=== PATIENT | female | born 1940 | race African-American/Black ===

== ENCOUNTER 2019-03-15 14:15 | Inpatient (IN) | payer BC, OTHER ==
[~2019-03-15] VITALS: Ht 162.6 cm; Wt 74.4 kg
[2019-03-15] VITALS (18 sets, daily range): BP systolic 124–165; BP diastolic 55–81
[2019-03-15] MEDS ORDERED: VANCOMYCIN 1 G PREMIX 200 ML IV ONE (14:45)
[2019-03-15] MEDS ORDERED: SODIUM CHLORIDE 0.9% 1000ML BAG (SEPSIS BOLUS) IV ONE (14:45)
[2019-03-15] MEDS ORDERED: DEXTROSE 50% WATER 50ML SYRINGE IV ONE ×2 (14:45→15:30)
[2019-03-15] MEDS ORDERED: PIPERACILLIN/TAZ 3.375G PREMIX 50 ML IV ONE (14:45)
[2019-03-15 15:05] LABS: BASOPHILS % 1.4 % (0.0-2.0); EOSINOPHILS % 1.5 % (0.0-5.0); HEMATOCRIT. 21.9 % (36.0-48.0); HEMOGLOBIN. 7.5 g/dL (12.0-16.0); LYMPHOCYTES % 43.5 % (20.0-50.0); MEAN CORPUSCULAR HEMOGLOBIN 31.5 pg (28.0-32.0); MEAN CORPUSCULAR VOLUME 92.5 fL (81.0-99.0); MEAN PLATELET VOLUME 6.8 fl (7.4-10.4); MONOCYTES % 10.7 % (2.0-8.0); NEUTROPHILS % 42.9 % (40.0-76.0); PLATELET 293 x1000/uL (130-400); RED BLOOD CELL COUNT 2.37 mill/uL (4.2-5.4)
[2019-03-15 15:13] LABS: INR 1.1; PROTHROMBIN TIME 11.2 sec (9.6-11.0)
[2019-03-15 15:14] LABS: CHLORIDE 104 mEq/L (98-107)
[2019-03-15 15:16] LABS: CLARITY URINE CLEAR (CLEAR); COLOR URINE YELLOW (YELLOW); KETONES URINE NEGATIVE (NEGATIVE); LEUKOCYTE ESTERASE URINE 2+ (NEGATIVE); NITRITE URINE POSITIVE (NEGATIVE); OCCULT BLOOD URINE NEGATIVE (NEGATIVE); PROTEIN URINE NEGATIVE (NEGATIVE); SPECIFIC GRAVITY URINE 1.005 (1.005-1.030); UROBILINOGEN URINE 0.2 E.U./dL (0.2-1.0)
[2019-03-15 15:18] LABS: ETHANOL BLOOD < 10 mg/dL
[2019-03-15 15:28] LABS: *AMPHETAMINES SCREEN URINE NEGATIVE (NEGATIVE)
[2019-03-15 15:29] LABS: *BARBITURATES SCREEN URINE NEGATIVE (NEGATIVE); *BENZODIAZEPINES SCREEN URINE NEGATIVE (NEGATIVE); *COCAINE SCREEN URINE NEGATIVE (NEGATIVE); METHADONE URINE SCREEN NEGATIVE (NEGATIVE); OPIATES URINE SCREEN NEGATIVE (NEGATIVE); PHENCYCLIDINE URINE SCREEN NEGATIVE (NEGATIVE)
[2019-03-15 15:30] LABS: CANNABINOID URINE SCREEN NEGATIVE (NEGATIVE)
[2019-03-15] MEDS ORDERED: LEVETIRACETAM 500MG PREMIX 100 ML IV ONE (17:45)
[2019-03-15] MEDS ORDERED: NICARDIPINE 50 MG in SODIUM CHLORIDE 0.9% 230 ML IV PRN ×4 (18:15)
[2019-03-15] MEDS ORDERED: SODIUM CHLORIDE 0.9% 1,000 ML IV SCH (19:53)
[2019-03-15] MEDS ORDERED: HYDROCODONE/ACETAMINOPHEN 5/325MG TABLET PO PRN (20:00)
[2019-03-15] MEDS ORDERED: MORPHINE SULFATE 2 MG/ML CPJ (NOT FOR IM USE) IV PRN (20:00)
[2019-03-15] MEDS ORDERED: DIPHENHYDRAMINE 50MG/ML VIAL IV PRN (20:00)
[2019-03-15] MEDS ORDERED: ONDANSETRON HCL 4MG/2ML INJ IV PRN (20:00)
[2019-03-15] MEDS ORDERED: BLOOD SUGAR DIAGNOSTIC STRIP TEST SCH (20:45)
[2019-03-15] MEDS ORDERED: DEXT 5%/LACTATED RINGERS 1,000 ML IV SCH (20:45)
[2019-03-15 21:37] LABS: TOTAL IRON BINDING CAPACITY 155 ug/dL (250-450)
[2019-03-15] MEDS: CEFTRIAXONE 1 G PREMIX 50 ML IV SCH (22:24)
[2019-03-15] MEDS: INSULIN LISPRO 100 UNITS/ML SUBCUT SCH (22:42)
[2019-03-16] VITALS (98 sets, daily range): BP systolic 112–163; BP diastolic 25–79
[2019-03-16] MEDS: NICARDIPINE 100 MG in SODIUM CHLORIDE 0.9% 60 ML IV PRN ×4 (00:28→23:09)
[2019-03-16] MEDS: DEXAMETHASONE 4MG/ML 1ML VIAL IV SCH ×4 (00:36→17:15)
[2019-03-16] MEDS: BLOOD SUGAR DIAGNOSTIC STRIP TEST SCH ×4 (05:40→20:18)
[2019-03-16 06:12] LABS: BASOPHILS % 0.8 % (0.0-2.0); EOSINOPHILS % 0.6 % (0.0-5.0); HEMOGLOBIN. 7.3 g/dL (12.0-16.0); LYMPHOCYTES % 12.6 % (20.0-50.0); MEAN CORPUSCULAR HEMOGLOBIN 32.2 pg (28.0-32.0); MEAN CORPUSCULAR VOLUME 92.4 fL (81.0-99.0); MEAN PLATELET VOLUME 7.1 fl (7.4-10.4); MONOCYTES % 3.1 % (2.0-8.0); NEUTROPHILS % 82.9 % (40.0-76.0); PLATELET 317 x1000/uL (130-400); RED BLOOD CELL COUNT 2.27 mill/uL (4.2-5.4); RED CELL DISTRIBUTION WIDTH 14.9 % (11.6-14.6)
[2019-03-16] MEDS: INSULIN LISPRO 100 UNITS/ML SUBCUT SCH ×4 (06:35→20:29)
[2019-03-16] MEDS: FOLIC ACID 1MG TABLET PO SCH (09:00)
[2019-03-16] MEDS: THIAMINE HCL 100MG TABLET PO SCH (09:00)
[2019-03-16] MEDS: LEVETIRACETAM 500 MG in SODIUM CHLORIDE 0.9% 100 ML IV SCH ×2 (09:08→21:10)
[2019-03-16] MEDS: LACTATED RINGERS 1,000 ML IV SCH (11:13)
[2019-03-16] MEDS: INSULIN GLARGINE UD 100 UNITS/ML SYR SUBCUT SCH ×2 (11:14→21:10)
[2019-03-16] MEDS: CEFTRIAXONE 1 G PREMIX 50 ML IV SCH (21:10)
[2019-03-17] VITALS (92 sets, daily range): BP systolic 111–161; BP diastolic 53–113
[2019-03-17] MEDS: DEXAMETHASONE 4MG/ML 1ML VIAL IV SCH ×5 (00:41→23:46)
[2019-03-17] MEDS ORDERED: HYDR-4135 PO (02:54)
[2019-03-17] MEDS ORDERED: AMLO5TAB88 PO (02:54)
[2019-03-17] MEDS ORDERED: ALLO100T PO (02:54)
[2019-03-17] MEDS ORDERED: B12/1TAB PO (02:54)
[2019-03-17] MEDS ORDERED: METO-411 PO (02:54)
[2019-03-17] MEDS ORDERED: LISI-604 PO (02:54)
[2019-03-17] MEDS ORDERED: FURO80TA3 PO (02:54)
[2019-03-17] MEDS ORDERED: SIMV80TA90 PO (02:54)
[2019-03-17] MEDS: NICARDIPINE 100 MG in SODIUM CHLORIDE 0.9% 60 ML IV PRN ×2 (04:38→15:19)
[2019-03-17] MEDS: LACTATED RINGERS 1,000 ML IV SCH ×2 (05:45→17:10)
[2019-03-17] MEDS: BLOOD SUGAR DIAGNOSTIC STRIP TEST SCH ×4 (05:46→21:16)
[2019-03-17 05:57] LABS: BASOPHILS % 0.2 % (0.0-2.0); EOSINOPHILS % 0.1 % (0.0-5.0); HEMATOCRIT. 27.6 % (36.0-48.0); LYMPHOCYTES % 17.2 % (20.0-50.0); MEAN CORPUSCULAR HEMOGLOBIN 31.8 pg (28.0-32.0); MEAN CORPUSCULAR VOLUME 90.4 fL (81.0-99.0); MEAN PLATELET VOLUME 6.9 fl (7.4-10.4); NEUTROPHILS % 80.5 % (40.0-76.0); PLATELET 326 x1000/uL (130-400); RED BLOOD CELL COUNT 3.05 mill/uL (4.2-5.4); RED CELL DISTRIBUTION WIDTH 15.5 % (11.6-14.6)
[2019-03-17 05:58] LABS: CHLORIDE 107 mEq/L (98-107)
[2019-03-17 06:02] LABS: HEMOGLOBIN. 9.7 g/dL (12.0-16.0)
[2019-03-17] MEDS: INSULIN LISPRO 100 UNITS/ML SUBCUT SCH ×4 (06:13→21:00)
[2019-03-17] MEDS: NYSTATIN POWDER 15GM TOP SCH ×3 (09:42→17:25)
[2019-03-17] MEDS: THIAMINE HCL 100MG TABLET PO SCH (09:43)
[2019-03-17] MEDS: LEVETIRACETAM 500 MG in SODIUM CHLORIDE 0.9% 100 ML IV SCH ×2 (09:43→21:16)
[2019-03-17] MEDS: FOLIC ACID 1MG TABLET PO SCH (09:43)
[2019-03-17] MEDS: FUROSEMIDE 40MG TABLET PO SCH (10:47)
[2019-03-17] MEDS: AMLODIPINE 5MG TABLET PO SCH (10:47)
[2019-03-17] MEDS: INSULIN GLARGINE UD 100 UNITS/ML SYR SUBCUT SCH ×2 (10:51→22:23)
[2019-03-17] MEDS: HYDRALAZINE HCL 50MG TABLET PO SCH ×3 (12:13→23:46)
[2019-03-17] MEDS: HYDRALAZINE 20MG/ML VIAL IV PRN (13:11)
[2019-03-17] MEDS: CEFTRIAXONE 1 G PREMIX 50 ML IV SCH (20:49)
[2019-03-17] MEDS: LISINOPRIL 20MG TABLET PO SCH (20:50)
[2019-03-17] MEDS: METOPROLOL TARTRATE 100MG TABLET PO SCH (20:50)
[2019-03-18] VITALS (89 sets, daily range): BP systolic 118–167; BP diastolic 41–103
[2019-03-18] MEDS: NICARDIPINE 100 MG in SODIUM CHLORIDE 0.9% 60 ML IV PRN ×2 (00:04→23:18)
[2019-03-18 05:40] LABS: BASOPHILS % 0.3 % (0.0-2.0); LYMPHOCYTES % 10.8 % (20.0-50.0); MEAN CORPUSCULAR HEMOGLOBIN 31.6 pg (28.0-32.0); MONOCYTES % 3.6 % (2.0-8.0); NEUTROPHILS % 85.3 % (40.0-76.0); PLATELET 301 x1000/uL (130-400); RED BLOOD CELL COUNT 2.85 mill/uL (4.2-5.4); RED CELL DISTRIBUTION WIDTH 15.4 % (11.6-14.6)
[2019-03-18 05:47] LABS: CHLORIDE 108 mEq/L (98-107)
[2019-03-18] MEDS: DEXAMETHASONE 4MG/ML 1ML VIAL IV SCH ×3 (05:59→17:03)
[2019-03-18] MEDS: BLOOD SUGAR DIAGNOSTIC STRIP TEST SCH ×4 (05:59→21:22)
[2019-03-18] MEDS: HYDRALAZINE HCL 50MG TABLET PO SCH ×2 (05:59→11:12)
[2019-03-18] MEDS: INSULIN LISPRO 100 UNITS/ML SUBCUT SCH ×4 (06:22→21:32)
[2019-03-18] MEDS: LISINOPRIL 20MG TABLET PO SCH ×2 (08:07→21:30)
[2019-03-18] MEDS: LEVETIRACETAM 500 MG in SODIUM CHLORIDE 0.9% 100 ML IV SCH ×2 (08:07→21:29)
[2019-03-18] MEDS: FOLIC ACID 1MG TABLET PO SCH (08:07)
[2019-03-18] MEDS: AMLODIPINE 5MG TABLET PO SCH ×3 (08:07→21:30)
[2019-03-18] MEDS: FUROSEMIDE 40MG TABLET PO SCH (08:07)
[2019-03-18] MEDS: THIAMINE HCL 100MG TABLET PO SCH (08:07)
[2019-03-18] MEDS: NYSTATIN POWDER 15GM TOP SCH ×3 (08:08→16:05)
[2019-03-18] MEDS: METOPROLOL TARTRATE 100MG TABLET PO SCH ×2 (08:08→21:30)
[2019-03-18] MEDS: INSULIN GLARGINE UD 100 UNITS/ML SYR SUBCUT SCH ×2 (09:52→21:33)
[2019-03-18] MEDS: LACTATED RINGERS 1,000 ML IV SCH (09:58)
[2019-03-18] MEDS: CLONIDINE 0.1MG TABLET PO PRN (12:43)
[2019-03-18] MEDS: HYDRALAZINE HCL 100MG TABLET PO SCH (17:03)
[2019-03-18] MEDS: CEFTRIAXONE 1 G PREMIX 50 ML IV SCH (21:29)
[2019-03-19] VITALS (95 sets, daily range): BP systolic 117–171; BP diastolic 55–111
[2019-03-19] MEDS: LACTATED RINGERS 1,000 ML IV SCH ×2 (02:28→20:17)
[2019-03-19] MEDS: DEXAMETHASONE 4MG/ML 1ML VIAL IV SCH ×4 (02:28→17:00)
[2019-03-19] MEDS: BLOOD SUGAR DIAGNOSTIC STRIP TEST SCH ×4 (05:47→20:17)
[2019-03-19] MEDS: INSULIN LISPRO 100 UNITS/ML SUBCUT SCH ×4 (06:05→20:23)
[2019-03-19 06:14] LABS: BASOPHILS % 0.1 % (0.0-2.0); LYMPHOCYTES % 9.7 % (20.0-50.0); MEAN CORPUSCULAR HEMOGLOBIN 31.6 pg (28.0-32.0); MEAN CORPUSCULAR VOLUME 91.5 fL (81.0-99.0); MEAN PLATELET VOLUME 7.2 fl (7.4-10.4); MONOCYTES % 4.9 % (2.0-8.0); NEUTROPHILS % 85.3 % (40.0-76.0); PLATELET 329 x1000/uL (130-400); RED BLOOD CELL COUNT 3.17 mill/uL (4.2-5.4); RED CELL DISTRIBUTION WIDTH 15.1 % (11.6-14.6)
[2019-03-19 06:26] LABS: CHLORIDE 106 mEq/L (98-107)
[2019-03-19] MEDS: LORAZEPAM 2MG/ML CPJ IV PRN ×2 (07:24→13:06)
[2019-03-19] MEDS: NICARDIPINE 100 MG in SODIUM CHLORIDE 0.9% 60 ML IV PRN (08:22)
[2019-03-19] MEDS: AMLODIPINE 5MG TABLET PO SCH ×2 (09:41→20:16)
[2019-03-19] MEDS: THIAMINE HCL 100MG TABLET PO SCH (09:41)
[2019-03-19] MEDS: LISINOPRIL 20MG TABLET PO SCH ×2 (09:41→20:16)
[2019-03-19] MEDS: NYSTATIN POWDER 15GM TOP SCH ×3 (09:41→16:59)
[2019-03-19] MEDS: LEVETIRACETAM 500 MG in SODIUM CHLORIDE 0.9% 100 ML IV SCH ×2 (09:42→20:15)
[2019-03-19] MEDS: FUROSEMIDE 40MG TABLET PO SCH (09:42)
[2019-03-19] MEDS: METOPROLOL TARTRATE 100MG TABLET PO SCH ×2 (09:42→20:16)
[2019-03-19] MEDS: HYDRALAZINE HCL 100MG TABLET PO SCH ×3 (09:42→16:59)
[2019-03-19] MEDS: FOLIC ACID 1MG TABLET PO SCH (09:42)
[2019-03-19] MEDS: INSULIN GLARGINE UD 100 UNITS/ML SYR SUBCUT SCH ×2 (11:37→22:14)
[2019-03-19] MEDS: CLONIDINE 0.1MG TABLET PO SCH ×2 (13:13→22:15)
[2019-03-19] MEDS: CEFTRIAXONE 1 G PREMIX 50 ML IV SCH (20:16)
[2019-03-19] MEDS: IPRATROPIUM/ALBUTEROL 0.5-3(2.5)MG/3ML NEB HHN SCH (21:14)
[2019-03-20] VITALS (51 sets, daily range): BP systolic 121–192; BP diastolic 53–94
[2019-03-20] MEDS: DEXAMETHASONE 4MG/ML 1ML VIAL IV SCH ×4 (00:30→17:11)
[2019-03-20] MEDS: IPRATROPIUM/ALBUTEROL 0.5-3(2.5)MG/3ML NEB HHN SCH ×4 (01:27→18:00)
[2019-03-20] MEDS: NICARDIPINE 100 MG in SODIUM CHLORIDE 0.9% 60 ML IV PRN (02:01)
[2019-03-20 06:15] LABS: CHLORIDE 106 mEq/L (98-107)
[2019-03-20] MEDS: CLONIDINE 0.1MG TABLET PO SCH ×3 (06:24→21:28)
[2019-03-20] MEDS: BLOOD SUGAR DIAGNOSTIC STRIP TEST SCH ×4 (06:24→21:30)
[2019-03-20] MEDS: INSULIN LISPRO 100 UNITS/ML SUBCUT SCH ×4 (06:26→22:29)
[2019-03-20 06:28] LABS: HEMATOCRIT. 33.2 % (36.0-48.0); HEMOGLOBIN. 11.1 g/dL (12.0-16.0); LYMPHOCYTES % 10.5 % (20.0-50.0); MEAN CORPUSCULAR HEMOGLOBIN 30.8 pg (28.0-32.0); MEAN CORPUSCULAR VOLUME 92.3 fL (81.0-99.0); MEAN PLATELET VOLUME 7.6 fl (7.4-10.4); MONOCYTES % 4.6 % (2.0-8.0); NEUTROPHILS % 84.9 % (40.0-76.0); PLATELET 325 x1000/uL (130-400); RED CELL DISTRIBUTION WIDTH 15.1 % (11.6-14.6)
[2019-03-20] MEDS: FUROSEMIDE 40MG TABLET PO SCH (08:00)
[2019-03-20] MEDS: AMLODIPINE 5MG TABLET PO SCH ×2 (08:00→20:30)
[2019-03-20] MEDS: LEVETIRACETAM 500 MG in SODIUM CHLORIDE 0.9% 100 ML IV SCH ×2 (08:00→22:22)
[2019-03-20] MEDS: FOLIC ACID 1MG TABLET PO SCH (08:00)
[2019-03-20] MEDS: METOPROLOL TARTRATE 100MG TABLET PO SCH ×2 (08:00→20:30)
[2019-03-20] MEDS: HYDRALAZINE HCL 100MG TABLET PO SCH ×3 (08:00→17:11)
[2019-03-20] MEDS: THIAMINE HCL 100MG TABLET PO SCH (08:01)
[2019-03-20] MEDS: LISINOPRIL 20MG TABLET PO SCH ×2 (08:01→20:30)
[2019-03-20] MEDS: NYSTATIN POWDER 15GM TOP SCH ×3 (08:10→17:12)
[2019-03-20] MEDS: INSULIN GLARGINE UD 100 UNITS/ML SYR SUBCUT SCH ×2 (10:24→22:30)
[2019-03-20] MEDS: LACTATED RINGERS 1,000 ML IV SCH (11:38)
[2019-03-20] MEDS: CLONIDINE 0.1MG TABLET PO PRN (11:44)
[2019-03-20] MEDS: HYDRALAZINE 20MG/ML VIAL IV PRN (18:45)
[2019-03-21] VITALS (16 sets, daily range): BP systolic 146–184; BP diastolic 57–82
[2019-03-21] MEDS: DEXAMETHASONE 4MG/ML 1ML VIAL IV SCH ×4 (00:22→17:13)
[2019-03-21] MEDS: CEFTRIAXONE 1 G PREMIX 50 ML IV SCH ×2 (00:22→20:16)
[2019-03-21] MEDS: CLONIDINE 0.1MG TABLET PO PRN ×3 (02:03→13:50)
[2019-03-21] MEDS: IPRATROPIUM/ALBUTEROL 0.5-3(2.5)MG/3ML NEB HHN SCH ×3 (02:59→20:04)
[2019-03-21] MEDS: LACTATED RINGERS 1,000 ML IV SCH (05:06)
[2019-03-21] MEDS: CLONIDINE 0.1MG TABLET PO SCH ×3 (05:07→23:46)
[2019-03-21 06:56] LABS: BASOPHILS % 0.1 % (0.0-2.0); HEMATOCRIT. 27.4 % (36.0-48.0); HEMOGLOBIN. 9.3 g/dL (12.0-16.0); LYMPHOCYTES % 12.7 % (20.0-50.0); MEAN CORPUSCULAR HEMOGLOBIN 31.2 pg (28.0-32.0); MEAN CORPUSCULAR VOLUME 91.5 fL (81.0-99.0); MEAN PLATELET VOLUME 7.5 fl (7.4-10.4); MONOCYTES % 7.8 % (2.0-8.0); NEUTROPHILS % 79.4 % (40.0-76.0); PLATELET 264 x1000/uL (130-400); RED BLOOD CELL COUNT 2.99 mill/uL (4.2-5.4); RED CELL DISTRIBUTION WIDTH 15.1 % (11.6-14.6)
[2019-03-21 07:04] LABS: CHLORIDE 109 mEq/L (98-107)
[2019-03-21] MEDS: BLOOD SUGAR DIAGNOSTIC STRIP TEST SCH ×4 (08:09→21:00)
[2019-03-21] MEDS: INSULIN LISPRO 100 UNITS/ML SUBCUT SCH ×4 (08:21→22:42)
[2019-03-21] MEDS: METOPROLOL TARTRATE 100MG TABLET PO SCH ×2 (08:23→20:17)
[2019-03-21] MEDS: THIAMINE HCL 100MG TABLET PO SCH (08:23)
[2019-03-21] MEDS: LISINOPRIL 20MG TABLET PO SCH ×2 (08:24→20:18)
[2019-03-21] MEDS: FUROSEMIDE 40MG TABLET PO SCH (08:24)
[2019-03-21] MEDS: HYDRALAZINE HCL 100MG TABLET PO SCH ×3 (08:24→16:15)
[2019-03-21] MEDS: FOLIC ACID 1MG TABLET PO SCH (08:24)
[2019-03-21] MEDS: LEVETIRACETAM 500 MG in SODIUM CHLORIDE 0.9% 100 ML IV SCH ×2 (08:24→22:27)
[2019-03-21] MEDS: AMLODIPINE 5MG TABLET PO SCH ×2 (08:24→20:17)
[2019-03-21] MEDS: NYSTATIN POWDER 15GM TOP SCH ×3 (08:25→16:15)
[2019-03-21] MEDS: INSULIN GLARGINE UD 100 UNITS/ML SYR SUBCUT SCH ×2 (09:50→22:42)
[2019-03-21] MEDS: HYDRALAZINE 20MG/ML VIAL IV PRN ×2 (10:08→17:13)
[2019-03-21] MEDS: IPRATROPIUM/ALBUTEROL 0.5-3(2.5)MG/3ML NEB HHN PRN ×2 (12:06→16:09)
[2019-03-21] MEDS: ACETYLCYSTEINE 100MG/ML 10% VIAL 4ML INH SCH (16:09)
[2019-03-21] MEDS: MINOXIDIL 2.5MG TABLET PO SCH (18:29)
[2019-03-21] MEDS: FLUOXETINE HCL 20MG CAPSULE PO SCH (20:16)
[2019-03-22] VITALS (12 sets, daily range): BP systolic 102–174; BP diastolic 37–80
[2019-03-22] MEDS: DEXAMETHASONE 4MG/ML 1ML VIAL IV SCH ×4 (00:54→17:28)
[2019-03-22] MEDS: IPRATROPIUM/ALBUTEROL 0.5-3(2.5)MG/3ML NEB HHN SCH ×4 (01:57→22:11)
[2019-03-22] MEDS: CLONIDINE 0.1MG TABLET PO SCH ×3 (05:09→22:47)
[2019-03-22 07:50] LABS: CHLORIDE 108 mEq/L (98-107)
[2019-03-22 07:55] LABS: BASOPHILS % 0.1 % (0.0-2.0); HEMATOCRIT. 26.7 % (36.0-48.0); HEMOGLOBIN. 9.1 g/dL (12.0-16.0); LYMPHOCYTES % 13.5 % (20.0-50.0); MEAN CORPUSCULAR HEMOGLOBIN 30.9 pg (28.0-32.0); MEAN CORPUSCULAR VOLUME 90.8 fL (81.0-99.0); MEAN PLATELET VOLUME 7.5 fl (7.4-10.4); MONOCYTES % 4.9 % (2.0-8.0); NEUTROPHILS % 81.5 % (40.0-76.0); PLATELET 232 x1000/uL (130-400); RED BLOOD CELL COUNT 2.94 mill/uL (4.2-5.4); RED CELL DISTRIBUTION WIDTH 14.9 % (11.6-14.6)
[2019-03-22] MEDS: INSULIN LISPRO 100 UNITS/ML SUBCUT SCH ×4 (08:00→21:52)
[2019-03-22] MEDS: THIAMINE HCL 100MG TABLET PO SCH (08:10)
[2019-03-22] MEDS: LISINOPRIL 20MG TABLET PO SCH ×2 (08:10→21:27)
[2019-03-22] MEDS: METOPROLOL TARTRATE 100MG TABLET PO SCH ×2 (08:10→21:26)
[2019-03-22] MEDS: HYDRALAZINE HCL 100MG TABLET PO SCH ×3 (08:10→17:00)
[2019-03-22] MEDS: FOLIC ACID 1MG TABLET PO SCH (08:11)
[2019-03-22] MEDS: MINOXIDIL 2.5MG TABLET PO SCH ×2 (08:11→17:00)
[2019-03-22] MEDS: AMLODIPINE 5MG TABLET PO SCH ×2 (08:11→21:27)
[2019-03-22] MEDS: FUROSEMIDE 40MG TABLET PO SCH (08:11)
[2019-03-22] MEDS: FLUOXETINE HCL 20MG CAPSULE PO SCH (08:11)
[2019-03-22] MEDS: BLOOD SUGAR DIAGNOSTIC STRIP TEST SCH ×4 (08:11→21:27)
[2019-03-22] MEDS: LEVETIRACETAM 500 MG in SODIUM CHLORIDE 0.9% 100 ML IV SCH ×2 (08:15→22:47)
[2019-03-22] MEDS: ACETYLCYSTEINE 100MG/ML 10% VIAL 4ML INH SCH ×2 (08:29→14:05)
[2019-03-22] MEDS: NYSTATIN POWDER 15GM TOP SCH ×3 (10:31→17:30)
[2019-03-22] MEDS: INSULIN GLARGINE UD 100 UNITS/ML SYR SUBCUT SCH ×2 (10:32→22:49)
[2019-03-22 19:55] LABS: TOTAL IRON BINDING CAPACITY 158 ug/dL (250-450)
[2019-03-22] MEDS: CEFTRIAXONE 1 G PREMIX 50 ML IV SCH (21:25)
[2019-03-23] VITALS (14 sets, daily range): BP systolic 98–185; BP diastolic 44–68
[2019-03-23] MEDS: DEXAMETHASONE 4MG/ML 1ML VIAL IV SCH ×5 (00:11→23:13)
[2019-03-23] MEDS: IPRATROPIUM/ALBUTEROL 0.5-3(2.5)MG/3ML NEB HHN SCH ×4 (03:02→22:00)
[2019-03-23] MEDS: HYDRALAZINE 20MG/ML VIAL IV PRN (05:06)
[2019-03-23] MEDS: CLONIDINE 0.1MG TABLET PO SCH ×3 (05:26→22:00)
[2019-03-23] MEDS: BLOOD SUGAR DIAGNOSTIC STRIP TEST SCH ×4 (07:30→21:11)
[2019-03-23] MEDS: ACETYLCYSTEINE 100MG/ML 10% VIAL 4ML INH SCH ×2 (08:00→09:03)
[2019-03-23] MEDS: INSULIN LISPRO 100 UNITS/ML SUBCUT SCH ×4 (08:00→21:24)
[2019-03-23] MEDS: LEVETIRACETAM 500 MG in SODIUM CHLORIDE 0.9% 100 ML IV SCH ×2 (09:32→20:48)
[2019-03-23] MEDS: HYDRALAZINE HCL 100MG TABLET PO SCH ×3 (09:33→17:07)
[2019-03-23] MEDS: FOLIC ACID 1MG TABLET PO SCH (09:33)
[2019-03-23] MEDS: FLUOXETINE HCL 20MG CAPSULE PO SCH (09:33)
[2019-03-23] MEDS: FUROSEMIDE 40MG TABLET PO SCH (09:33)
[2019-03-23] MEDS: THIAMINE HCL 100MG TABLET PO SCH (09:33)
[2019-03-23] MEDS: MINOXIDIL 2.5MG TABLET PO SCH ×2 (09:34→17:08)
[2019-03-23] MEDS: METOPROLOL TARTRATE 100MG TABLET PO SCH ×2 (09:34→21:11)
[2019-03-23] MEDS: LISINOPRIL 20MG TABLET PO SCH ×2 (09:35→21:11)
[2019-03-23] MEDS: AMLODIPINE 5MG TABLET PO SCH ×2 (09:35→21:10)
[2019-03-23] MEDS: NYSTATIN POWDER 15GM TOP SCH ×3 (09:36→17:08)
[2019-03-23] MEDS: INSULIN GLARGINE UD 100 UNITS/ML SYR SUBCUT SCH ×2 (09:39→22:35)
[2019-03-23] MEDS ORDERED: ACETAMINOPHEN 325MG TABLET PO PRN (16:15)
[2019-03-24] VITALS (11 sets, daily range): BP systolic 99–146; BP diastolic 35–59
[2019-03-24] MEDS: IPRATROPIUM/ALBUTEROL 0.5-3(2.5)MG/3ML NEB HHN SCH ×4 (02:43→20:06)
[2019-03-24] MEDS: DEXAMETHASONE 4MG/ML 1ML VIAL IV SCH ×3 (05:21→17:33)
[2019-03-24] MEDS: CLONIDINE 0.1MG TABLET PO SCH ×3 (05:21→22:35)
[2019-03-24] MEDS: BLOOD SUGAR DIAGNOSTIC STRIP TEST SCH ×4 (07:30→21:01)
[2019-03-24] MEDS: INSULIN LISPRO 100 UNITS/ML SUBCUT SCH ×4 (08:00→21:13)
[2019-03-24 08:04] LABS: BASOPHILS % 0.2 % (0.0-2.0); HEMATOCRIT. 25.7 % (36.0-48.0); HEMOGLOBIN. 8.7 g/dL (12.0-16.0); LYMPHOCYTES % 23.4 % (20.0-50.0); MEAN CORPUSCULAR HEMOGLOBIN 30.7 pg (28.0-32.0); MEAN CORPUSCULAR VOLUME 90.9 fL (81.0-99.0); MEAN PLATELET VOLUME 7.8 fl (7.4-10.4); MONOCYTES % 7.1 % (2.0-8.0); NEUTROPHILS % 69.3 % (40.0-76.0); PLATELET 194 x1000/uL (130-400); RED BLOOD CELL COUNT 2.82 mill/uL (4.2-5.4)
[2019-03-24 08:43] LABS: PHOSPHORUS 2.8 mg/dL (2.5-4.9)
[2019-03-24] MEDS: ACETYLCYSTEINE 100MG/ML 10% VIAL 4ML INH SCH (08:55)
[2019-03-24] MEDS: METOPROLOL TARTRATE 100MG TABLET PO SCH ×2 (09:00→21:00)
[2019-03-24] MEDS: AMLODIPINE 5MG TABLET PO SCH ×2 (09:00→21:00)
[2019-03-24] MEDS: HYDRALAZINE HCL 100MG TABLET PO SCH ×3 (09:00→17:00)
[2019-03-24] MEDS: LISINOPRIL 20MG TABLET PO SCH ×2 (09:00→21:01)
[2019-03-24] MEDS: MINOXIDIL 2.5MG TABLET PO SCH ×2 (09:00→17:00)
[2019-03-24] MEDS: LEVETIRACETAM 500 MG in SODIUM CHLORIDE 0.9% 100 ML IV SCH ×2 (09:25→21:46)
[2019-03-24] MEDS: FOLIC ACID 1MG TABLET PO SCH (09:26)
[2019-03-24] MEDS: FLUOXETINE HCL 20MG CAPSULE PO SCH (09:26)
[2019-03-24] MEDS: FUROSEMIDE 40MG TABLET PO SCH (09:26)
[2019-03-24] MEDS: THIAMINE HCL 100MG TABLET PO SCH (09:26)
[2019-03-24] MEDS: NYSTATIN POWDER 15GM TOP SCH ×3 (09:27→17:34)
[2019-03-24] MEDS: INSULIN GLARGINE UD 100 UNITS/ML SYR SUBCUT SCH ×2 (11:04→21:50)
[2019-03-25] VITALS (12 sets, daily range): BP systolic 95–160; BP diastolic 51–69
[2019-03-25] MEDS: DEXAMETHASONE 4MG/ML 1ML VIAL IV SCH ×4 (00:41→18:28)
[2019-03-25] MEDS: IPRATROPIUM/ALBUTEROL 0.5-3(2.5)MG/3ML NEB HHN SCH ×4 (02:06→21:04)
[2019-03-25] MEDS: CLONIDINE 0.1MG TABLET PO SCH ×3 (05:12→21:56)
[2019-03-25] MEDS: BLOOD SUGAR DIAGNOSTIC STRIP TEST SCH ×4 (07:38→21:43)
[2019-03-25] MEDS: INSULIN LISPRO 100 UNITS/ML SUBCUT SCH ×4 (08:05→21:46)
[2019-03-25 08:46] LABS: TOTAL IRON BINDING CAPACITY 172 ug/dL (250-450)
[2019-03-25] MEDS: METOPROLOL TARTRATE 100MG TABLET PO SCH ×2 (09:00→19:34)
[2019-03-25] MEDS: LEVETIRACETAM 500 MG in SODIUM CHLORIDE 0.9% 100 ML IV SCH ×2 (09:06→21:43)
[2019-03-25] MEDS: FLUOXETINE HCL 20MG CAPSULE PO SCH (09:06)
[2019-03-25] MEDS: THIAMINE HCL 100MG TABLET PO SCH (09:06)
[2019-03-25] MEDS: NYSTATIN POWDER 15GM TOP SCH ×3 (09:07→18:27)
[2019-03-25] MEDS: AMLODIPINE 5MG TABLET PO SCH ×2 (09:51→19:34)
[2019-03-25] MEDS: MINOXIDIL 2.5MG TABLET PO SCH ×2 (09:52→17:00)
[2019-03-25] MEDS: HYDRALAZINE HCL 100MG TABLET PO SCH ×3 (09:53→17:00)
[2019-03-25] MEDS: LISINOPRIL 20MG TABLET PO SCH ×2 (09:58→19:34)
[2019-03-25] MEDS: INSULIN GLARGINE UD 100 UNITS/ML SYR SUBCUT SCH ×2 (12:00→21:52)
[2019-03-25] MEDS: ACETYLCYSTEINE 100MG/ML 10% VIAL 4ML INH SCH (21:03)
[2019-03-26] VITALS (11 sets, daily range): BP systolic 91–158; BP diastolic 35–72
[2019-03-26] MEDS: DEXAMETHASONE 4MG/ML 1ML VIAL IV SCH ×4 (01:13→17:38)
[2019-03-26] MEDS: IPRATROPIUM/ALBUTEROL 0.5-3(2.5)MG/3ML NEB HHN SCH ×4 (01:31→21:28)
[2019-03-26] MEDS: CLONIDINE 0.1MG TABLET PO SCH ×3 (06:00→22:00)
[2019-03-26] MEDS: BLOOD SUGAR DIAGNOSTIC STRIP TEST SCH ×4 (07:30→21:03)
[2019-03-26] MEDS: ACETYLCYSTEINE 100MG/ML 10% VIAL 4ML INH SCH ×3 (08:12→17:00)
[2019-03-26] MEDS: METOPROLOL TARTRATE 100MG TABLET PO SCH ×2 (09:00→21:00)
[2019-03-26] MEDS: NYSTATIN POWDER 15GM TOP SCH ×3 (09:00→17:39)
[2019-03-26] MEDS: THIAMINE HCL 100MG TABLET PO SCH (09:10)
[2019-03-26] MEDS: FLUOXETINE HCL 20MG CAPSULE PO SCH (09:11)
[2019-03-26] MEDS: HYDRALAZINE HCL 100MG TABLET PO SCH ×3 (09:11→17:38)
[2019-03-26] MEDS: LISINOPRIL 20MG TABLET PO SCH ×2 (09:12→21:00)
[2019-03-26] MEDS: MINOXIDIL 2.5MG TABLET PO SCH ×2 (09:13→17:39)
[2019-03-26] MEDS: AMLODIPINE 5MG TABLET PO SCH ×2 (09:13→21:00)
[2019-03-26] MEDS: INSULIN LISPRO 100 UNITS/ML SUBCUT SCH ×4 (09:16→21:17)
[2019-03-26] MEDS: LEVETIRACETAM 500 MG in SODIUM CHLORIDE 0.9% 100 ML IV SCH ×2 (09:24→22:20)
[2019-03-26] MEDS: INSULIN GLARGINE UD 100 UNITS/ML SYR SUBCUT SCH ×2 (11:10→22:20)
[2019-03-26 17:08] LABS: 25-HYDROXY VITAMIN D3 35 ng/mL (.)
[2019-03-26 18:18] LABS: BASOPHILS % 0.3 % (0.0-2.0); HEMATOCRIT. 30.1 % (36.0-48.0); HEMOGLOBIN. 10.2 g/dL (12.0-16.0); LYMPHOCYTES % 11.9 % (20.0-50.0); MEAN CORPUSCULAR HEMOGLOBIN 30.7 pg (28.0-32.0); MEAN CORPUSCULAR VOLUME 90.4 fL (81.0-99.0); MEAN PLATELET VOLUME 8.4 fl (7.4-10.4); MONOCYTES % 7.8 % (2.0-8.0); PLATELET 243 x1000/uL (130-400); RED BLOOD CELL COUNT 3.33 mill/uL (4.2-5.4); RED CELL DISTRIBUTION WIDTH 14.7 % (11.6-14.6)
[2019-03-27] VITALS (10 sets, daily range): BP systolic 91–145; BP diastolic 31–55
[2019-03-27] MEDS: DEXAMETHASONE 4MG/ML 1ML VIAL IV SCH ×5 (00:50→23:35)
[2019-03-27] MEDS: IPRATROPIUM/ALBUTEROL 0.5-3(2.5)MG/3ML NEB HHN SCH (02:38)
[2019-03-27] MEDS: CLONIDINE 0.1MG TABLET PO SCH ×3 (05:32→21:10)
[2019-03-27] MEDS: BLOOD SUGAR DIAGNOSTIC STRIP TEST SCH ×4 (07:30→21:03)
[2019-03-27] MEDS: THIAMINE HCL 100MG TABLET PO SCH (08:42)
[2019-03-27] MEDS: FLUOXETINE HCL 20MG CAPSULE PO SCH (08:42)
[2019-03-27] MEDS: NYSTATIN POWDER 15GM TOP SCH ×3 (08:46→17:26)
[2019-03-27] MEDS: INSULIN LISPRO 100 UNITS/ML SUBCUT SCH ×4 (08:57→21:09)
[2019-03-27] MEDS: HYDRALAZINE HCL 100MG TABLET PO SCH ×3 (09:00→17:25)
[2019-03-27] MEDS: MINOXIDIL 2.5MG TABLET PO SCH ×2 (09:00→17:00)
[2019-03-27] MEDS: AMLODIPINE 5MG TABLET PO SCH ×2 (09:00→21:00)
[2019-03-27] MEDS: METOPROLOL TARTRATE 100MG TABLET PO SCH ×2 (09:00→21:00)
[2019-03-27] MEDS: LEVETIRACETAM 500 MG in SODIUM CHLORIDE 0.9% 100 ML IV SCH (09:00)
[2019-03-27] MEDS: LISINOPRIL 20MG TABLET PO SCH ×2 (09:00→21:00)
[2019-03-27] MEDS: INSULIN GLARGINE UD 100 UNITS/ML SYR SUBCUT SCH ×2 (11:03→23:37)
[2019-03-27] MEDS: LEVETIRACETAM 500MG PREMIX 100 ML IV SCH (21:09)
[2019-03-28] VITALS (9 sets, daily range): BP systolic 94–166; BP diastolic 37–75
[2019-03-28] MEDS: DEXAMETHASONE 4MG/ML 1ML VIAL IV SCH ×3 (05:34→17:25)
[2019-03-28] MEDS: CLONIDINE 0.1MG TABLET PO SCH ×3 (05:36→22:00)
[2019-03-28 07:06] LABS: BASOPHILS % 0.1 % (0.0-2.0); HEMATOCRIT. 27.5 % (36.0-48.0); HEMOGLOBIN. 9.4 g/dL (12.0-16.0); LYMPHOCYTES % 12.3 % (20.0-50.0); MEAN CORPUSCULAR VOLUME 90.8 fL (81.0-99.0); MEAN PLATELET VOLUME 8.1 fl (7.4-10.4); NEUTROPHILS % 80.6 % (40.0-76.0); PLATELET 224 x1000/uL (130-400); RED BLOOD CELL COUNT 3.03 mill/uL (4.2-5.4)
[2019-03-28] MEDS: BLOOD SUGAR DIAGNOSTIC STRIP TEST SCH ×4 (07:45→21:33)
[2019-03-28] MEDS: INSULIN LISPRO 100 UNITS/ML SUBCUT SCH ×4 (08:09→21:00)
[2019-03-28] MEDS: AMLODIPINE 5MG TABLET PO SCH ×2 (09:00→21:00)
[2019-03-28] MEDS: HYDRALAZINE HCL 100MG TABLET PO SCH ×3 (09:00→17:00)
[2019-03-28] MEDS: MINOXIDIL 2.5MG TABLET PO SCH ×2 (09:00→17:00)
[2019-03-28] MEDS: LISINOPRIL 20MG TABLET PO SCH ×2 (09:00→21:00)
[2019-03-28] MEDS: METOPROLOL TARTRATE 100MG TABLET PO SCH ×2 (09:00→21:00)
[2019-03-28] MEDS: FLUOXETINE HCL 20MG CAPSULE PO SCH (09:15)
[2019-03-28] MEDS: THIAMINE HCL 100MG TABLET PO SCH (09:15)
[2019-03-28] MEDS: LEVETIRACETAM 500MG PREMIX 100 ML IV SCH ×2 (09:17→22:45)
[2019-03-28] MEDS: NYSTATIN POWDER 15GM TOP SCH ×3 (10:38→17:25)
[2019-03-28] MEDS: INSULIN GLARGINE UD 100 UNITS/ML SYR SUBCUT SCH ×2 (10:39→22:46)
[2019-03-28] MEDS: SODIUM CHLORIDE 0.9% 1,000 ML IV SCH ×2 (11:53→22:47)
[2019-03-29] VITALS (7 sets, daily range): BP systolic 112–153; BP diastolic 41–88
[2019-03-29] MEDS: CLONIDINE 0.1MG TABLET PO SCH ×3 (07:01→22:00)
[2019-03-29 07:16] LABS: BASOPHILS % 0.1 % (0.0-2.0); HEMATOCRIT. 26.2 % (36.0-48.0); HEMOGLOBIN. 9.2 g/dL (12.0-16.0); LYMPHOCYTES % 24.2 % (20.0-50.0); MEAN CORPUSCULAR HEMOGLOBIN 31.3 pg (28.0-32.0); MEAN CORPUSCULAR VOLUME 89.8 fL (81.0-99.0); MEAN PLATELET VOLUME 7.8 fl (7.4-10.4); MONOCYTES % 10.4 % (2.0-8.0); NEUTROPHILS % 65.3 % (40.0-76.0); PLATELET 210 x1000/uL (130-400); RED BLOOD CELL COUNT 2.92 mill/uL (4.2-5.4); RED CELL DISTRIBUTION WIDTH 15.1 % (11.6-14.6)
[2019-03-29] MEDS: INSULIN LISPRO 100 UNITS/ML SUBCUT SCH ×4 (08:00→21:00)
[2019-03-29] MEDS: DEXTROSE 50% WATER 50ML SYRINGE IV PRN ×2 (08:04→12:20)
[2019-03-29] MEDS: BLOOD SUGAR DIAGNOSTIC STRIP TEST SCH ×4 (08:08→21:36)
[2019-03-29] MEDS: LISINOPRIL 20MG TABLET PO SCH ×2 (09:00→21:35)
[2019-03-29] MEDS: HYDRALAZINE HCL 100MG TABLET PO SCH ×3 (09:00→17:48)
[2019-03-29] MEDS: AMLODIPINE 5MG TABLET PO SCH ×2 (09:00→21:00)
[2019-03-29] MEDS: METOPROLOL TARTRATE 100MG TABLET PO SCH ×2 (09:00→21:35)
[2019-03-29] MEDS: MINOXIDIL 2.5MG TABLET PO SCH ×2 (09:00→17:48)
[2019-03-29] MEDS: INSULIN GLARGINE UD 100 UNITS/ML SYR SUBCUT SCH ×2 (10:00→21:35)
[2019-03-29] MEDS: FLUOXETINE HCL 20MG CAPSULE PO SCH (10:05)
[2019-03-29] MEDS: THIAMINE HCL 100MG TABLET PO SCH (10:05)
[2019-03-29] MEDS: LEVETIRACETAM 500MG PREMIX 100 ML IV SCH ×2 (10:05→21:40)
[2019-03-29] MEDS: DEXAMETHASONE 4MG/ML 1ML VIAL IV SCH ×2 (10:55→17:48)
[2019-03-29] MEDS: NYSTATIN POWDER 15GM TOP SCH ×3 (10:55→17:48)
[2019-03-29] MEDS: SODIUM CHLORIDE 0.9% 1,000 ML IV SCH (21:40)
[2019-03-30] VITALS: BP 115/45
[2019-03-30 04:00] VITALS: BP 136/54
[2019-03-30] MEDS: CLONIDINE 0.1MG TABLET PO SCH ×3 (04:35→22:00)
[2019-03-30] MEDS: SODIUM CHLORIDE 0.9% 1,000 ML IV SCH ×2 (04:36→18:01)
[2019-03-30] MEDS: BLOOD SUGAR DIAGNOSTIC STRIP TEST SCH ×4 (07:30→20:51)
[2019-03-30 08:00] VITALS: BP 104/42
[2019-03-30] MEDS: INSULIN LISPRO 100 UNITS/ML SUBCUT SCH ×4 (08:00→21:32)
[2019-03-30] MEDS: FLUOXETINE HCL 20MG CAPSULE PO SCH (08:55)
[2019-03-30] MEDS: DEXAMETHASONE 4MG/ML 1ML VIAL IV SCH ×2 (08:55→18:02)
[2019-03-30] MEDS: LEVETIRACETAM 500MG PREMIX 100 ML IV SCH ×2 (08:55→21:42)
[2019-03-30] MEDS: THIAMINE HCL 100MG TABLET PO SCH (08:56)
[2019-03-30] MEDS: HYDRALAZINE HCL 100MG TABLET PO SCH ×3 (09:00→18:04)
[2019-03-30] MEDS: AMLODIPINE 5MG TABLET PO SCH ×2 (09:00→21:00)
[2019-03-30] MEDS: LISINOPRIL 20MG TABLET PO SCH ×2 (09:00→21:00)
[2019-03-30] MEDS: MINOXIDIL 2.5MG TABLET PO SCH ×2 (09:00→18:01)
[2019-03-30] MEDS: METOPROLOL TARTRATE 100MG TABLET PO SCH ×2 (09:00→21:00)
[2019-03-30] MEDS: NYSTATIN POWDER 15GM TOP SCH ×3 (09:10→17:00)
[2019-03-30] MEDS: INSULIN GLARGINE UD 100 UNITS/ML SYR SUBCUT SCH ×2 (09:29→21:33)
[2019-03-30] MEDS ORDERED: BARIUM SULFATE 176 GM SUSP.RECON ONE (10:37)
[2019-03-30 12:00] VITALS: BP 162/70
[2019-03-30 16:23] LABS: BASOPHILS % 0.1 % (0.0-2.0); EOSINOPHILS % 0.1 % (0.0-5.0); HEMATOCRIT. 31.1 % (36.0-48.0); HEMOGLOBIN. 10.5 g/dL (12.0-16.0); LYMPHOCYTES % 11.6 % (20.0-50.0); MEAN CORPUSCULAR VOLUME 91.9 fL (81.0-99.0); MEAN PLATELET VOLUME 7.7 fl (7.4-10.4); NEUTROPHILS % 82.2 % (40.0-76.0); PLATELET 220 x1000/uL (130-400); RED BLOOD CELL COUNT 3.38 mill/uL (4.2-5.4); RED CELL DISTRIBUTION WIDTH 15.4 % (11.6-14.6)
[2019-03-30 16:31] LABS: CHLORIDE 102 mEq/L (98-107)
[2019-03-30 20:00] VITALS: BP 109/40
[2019-03-31] VITALS: BP 117/45
[2019-03-31 04:00] VITALS: BP 134/56
[2019-03-31] MEDS: CLONIDINE 0.1MG TABLET PO SCH ×3 (05:37→22:00)
[2019-03-31] MEDS: SODIUM CHLORIDE 0.9% 1,000 ML IV SCH ×2 (05:38→19:08)
[2019-03-31] MEDS: BLOOD SUGAR DIAGNOSTIC STRIP TEST SCH ×4 (06:49→21:18)
[2019-03-31] MEDS: INSULIN LISPRO 100 UNITS/ML SUBCUT SCH ×4 (07:50→21:18)
[2019-03-31 08:30] VITALS: BP 103/40
[2019-03-31] MEDS: LEVETIRACETAM 500MG PREMIX 100 ML IV SCH ×2 (08:58→21:17)
[2019-03-31] MEDS: THIAMINE HCL 100MG TABLET PO SCH (08:58)
[2019-03-31] MEDS: DEXAMETHASONE 4MG/ML 1ML VIAL IV SCH ×2 (08:58→17:23)
[2019-03-31] MEDS: HYDRALAZINE HCL 100MG TABLET PO SCH ×3 (09:00→17:23)
[2019-03-31] MEDS: MINOXIDIL 2.5MG TABLET PO SCH ×2 (09:00→17:22)
[2019-03-31] MEDS: AMLODIPINE 5MG TABLET PO SCH ×2 (09:00→21:00)
[2019-03-31] MEDS: METOPROLOL TARTRATE 100MG TABLET PO SCH ×2 (09:00→21:00)
[2019-03-31] MEDS: LISINOPRIL 20MG TABLET PO SCH ×2 (09:00→21:00)
[2019-03-31] MEDS: NYSTATIN POWDER 15GM TOP SCH ×3 (09:14→17:30)
[2019-03-31] MEDS: INSULIN GLARGINE UD 100 UNITS/ML SYR SUBCUT SCH ×2 (10:07→22:00)
[2019-03-31] MEDS: FLUOXETINE HCL 20MG CAPSULE PO SCH (12:21)
[2019-03-31 12:31] VITALS: BP 127/45
[2019-03-31 16:06] VITALS: BP 139/53
[2019-03-31 20:00] VITALS: BP 104/46
[2019-04-01] VITALS: BP 138/55
[2019-04-01 04:00] VITALS: BP 129/58
[2019-04-01] MEDS: CLONIDINE 0.1MG TABLET PO SCH ×3 (06:06→21:49)
[2019-04-01] MEDS: BLOOD SUGAR DIAGNOSTIC STRIP TEST SCH ×4 (06:06→21:49)
[2019-04-01] MEDS: INSULIN LISPRO 100 UNITS/ML SUBCUT SCH ×4 (07:50→21:56)
[2019-04-01 08:37] VITALS: BP 105/36
[2019-04-01] MEDS: HYDRALAZINE HCL 100MG TABLET PO SCH ×3 (08:39→17:50)
[2019-04-01] MEDS: AMLODIPINE 5MG TABLET PO SCH ×2 (08:40→21:00)
[2019-04-01] MEDS: METOPROLOL TARTRATE 100MG TABLET PO SCH ×2 (08:40→21:00)
[2019-04-01] MEDS: MINOXIDIL 2.5MG TABLET PO SCH ×2 (08:41→17:50)
[2019-04-01] MEDS: LISINOPRIL 20MG TABLET PO SCH ×2 (08:41→21:00)
[2019-04-01] MEDS: NYSTATIN POWDER 15GM TOP SCH ×3 (08:50→17:50)
[2019-04-01] MEDS: LEVETIRACETAM 500MG PREMIX 100 ML IV SCH ×2 (08:50→21:55)
[2019-04-01] MEDS: DEXAMETHASONE 4MG/ML 1ML VIAL IV SCH ×2 (08:50→17:53)
[2019-04-01] MEDS: FLUOXETINE HCL 20MG CAPSULE PO SCH (08:50)
[2019-04-01] MEDS: THIAMINE HCL 100MG TABLET PO SCH (08:50)
[2019-04-01] MEDS: INSULIN GLARGINE UD 100 UNITS/ML SYR SUBCUT SCH ×2 (08:55→21:56)
[2019-04-01] MEDS: SODIUM CHLORIDE 0.9% 1,000 ML IV SCH ×2 (11:48→21:57)
[2019-04-01 12:17] VITALS: BP 136/55
[2019-04-01 16:36] VITALS: BP 134/50
[2019-04-01 20:00] VITALS: BP 127/50
[2019-04-02] VITALS: BP 121/52
[2019-04-02 04:03] VITALS: BP 126/57
[2019-04-02] MEDS: CLONIDINE 0.1MG TABLET PO SCH ×2 (06:45→14:00)
[2019-04-02] MEDS: BLOOD SUGAR DIAGNOSTIC STRIP TEST SCH ×4 (06:54→20:41)
[2019-04-02] MEDS: INSULIN LISPRO 100 UNITS/ML SUBCUT SCH ×4 (07:50→21:00)
[2019-04-02 08:00] VITALS: BP 136/71
[2019-04-02] MEDS: LEVETIRACETAM 500MG PREMIX 100 ML IV SCH ×2 (09:00→21:55)
[2019-04-02] MEDS: DEXAMETHASONE 4MG/ML 1ML VIAL IV SCH ×2 (09:34→17:12)
[2019-04-02] MEDS: FLUOXETINE HCL 20MG CAPSULE PO SCH (09:35)
[2019-04-02] MEDS: AMLODIPINE 5MG TABLET PO SCH ×2 (09:35→20:40)
[2019-04-02] MEDS: METOPROLOL TARTRATE 100MG TABLET PO SCH ×2 (09:35→20:40)
[2019-04-02] MEDS: HYDRALAZINE HCL 100MG TABLET PO SCH ×3 (09:35→17:08)
[2019-04-02] MEDS: THIAMINE HCL 100MG TABLET PO SCH (09:36)
[2019-04-02] MEDS: LISINOPRIL 20MG TABLET PO SCH ×2 (09:36→20:41)
[2019-04-02] MEDS: MINOXIDIL 2.5MG TABLET PO SCH ×2 (09:37→17:08)
[2019-04-02] MEDS ORDERED: LEVETIRACETAM 500 MG in SODIUM CHLORIDE 0.9% 100 ML IV SCH (09:45)
[2019-04-02] MEDS: INSULIN GLARGINE UD 100 UNITS/ML SYR SUBCUT SCH ×2 (09:50→22:03)
[2019-04-02] MEDS: NYSTATIN POWDER 15GM TOP SCH ×3 (09:50→17:13)
[2019-04-02] MEDS: SODIUM CHLORIDE 0.9% 1,000 ML IV SCH (11:33)
[2019-04-02 12:00] VITALS: BP 120/45
[2019-04-02] MEDS ORDERED: LACTULOSE 20G/30ML UDC PO SCH (14:30)
[2019-04-02 16:12] VITALS: BP 120/52
[2019-04-02 20:00] VITALS: BP 134/55
[2019-04-02] MEDS: CLONIDINE 0.2MG TABLET PO SCH (22:10)
[2019-04-03] VITALS: BP 128/40
[2019-04-03] MEDS: BLOOD SUGAR DIAGNOSTIC STRIP TEST SCH ×4 (07:20→21:12)
[2019-04-03] MEDS: INSULIN LISPRO 100 UNITS/ML SUBCUT SCH ×4 (07:50→21:29)
[2019-04-03 08:10] VITALS: BP 124/46
[2019-04-03] MEDS: METOPROLOL TARTRATE 100MG TABLET PO SCH ×2 (09:00→21:07)
[2019-04-03] MEDS: LISINOPRIL 20MG TABLET PO SCH ×2 (09:00→21:06)
[2019-04-03] MEDS: HYDRALAZINE HCL 100MG TABLET PO SCH ×3 (09:00→17:00)
[2019-04-03] MEDS: AMLODIPINE 5MG TABLET PO SCH ×2 (09:00→21:17)
[2019-04-03] MEDS: NYSTATIN POWDER 15GM TOP SCH ×4 (09:27→18:20)
[2019-04-03] MEDS: LEVETIRACETAM 500MG PREMIX 100 ML IV SCH (09:27)
[2019-04-03] MEDS: THIAMINE HCL 100MG TABLET PO SCH (09:28)
[2019-04-03] MEDS: MINOXIDIL 2.5MG TABLET PO SCH ×2 (09:28→18:20)
[2019-04-03] MEDS: DEXAMETHASONE 4MG/ML 1ML VIAL IV SCH ×2 (09:28→18:21)
[2019-04-03] MEDS: FLUOXETINE HCL 20MG CAPSULE PO SCH (09:28)
[2019-04-03] MEDS: INSULIN GLARGINE UD 100 UNITS/ML SYR SUBCUT SCH (09:31)
[2019-04-03 12:18] VITALS: BP 132/54
[2019-04-03] MEDS ORDERED: HYDRALAZINE 20MG/ML VIAL IV ONE (12:45)
[2019-04-03] MEDS ORDERED: HYDRALAZINE HCL 50MG TABLET PO SCH (13:00)
[2019-04-03] MEDS: SODIUM CHLORIDE 0.9% 1,000 ML IV SCH ×2 (13:35→21:05)
[2019-04-03] MEDS: LEVETIRACETAM 500MG TABLET PO SCH ×2 (13:39→21:06)
[2019-04-03] MEDS: CLONIDINE 0.2MG TABLET PO SCH ×2 (13:40→23:01)
[2019-04-03 16:05] VITALS: BP 123/58
[2019-04-03] MEDS ORDERED: ALLOPURINOL 100 MG TABLET PO SCH (17:00)
[2019-04-03] MEDS ORDERED: MEDICATION NOT ON FORMULARY EA (Metoprolol Succinate 100 MG) PO SCH (17:00)
[2019-04-03] MEDS ORDERED: LISINOPRIL 20MG TABLET PO SCH (17:00)
[2019-04-03 20:00] VITALS: BP 134/55
[2019-04-03] MEDS ORDERED: SIMVASTATIN 80 MG PO SCH (21:00)
[2019-04-04] VITALS: BP 163/69
[2019-04-04 04:00] VITALS: BP 117/52
[2019-04-04] MEDS: CLONIDINE 0.2MG TABLET PO SCH ×3 (05:55→21:17)
[2019-04-04] MEDS: BLOOD SUGAR DIAGNOSTIC STRIP TEST SCH ×4 (07:09→20:45)
[2019-04-04] MEDS: INSULIN LISPRO 100 UNITS/ML SUBCUT SCH ×4 (08:03→20:45)
[2019-04-04 08:08] VITALS: BP 101/44
[2019-04-04] MEDS: LEVETIRACETAM 500MG TABLET PO SCH ×2 (08:48→20:44)
[2019-04-04] MEDS: FLUOXETINE HCL 20MG CAPSULE PO SCH (08:48)
[2019-04-04] MEDS: THIAMINE HCL 100MG TABLET PO SCH (08:48)
[2019-04-04] MEDS: DEXAMETHASONE 4MG/ML 1ML VIAL IV SCH ×2 (08:48→18:14)
[2019-04-04] MEDS: METOPROLOL TARTRATE 100MG TABLET PO SCH ×2 (09:00→20:44)
[2019-04-04] MEDS: LISINOPRIL 20MG TABLET PO SCH ×2 (09:00→20:44)
[2019-04-04] MEDS ORDERED: AMLODIPINE 5MG TABLET PO SCH (09:00)
[2019-04-04] MEDS: MINOXIDIL 2.5MG TABLET PO SCH ×2 (09:00→18:10)
[2019-04-04] MEDS ORDERED: MEDICATION NOT ON FORMULARY EA (Furosemide 80 MG) PO SCH (09:00)
[2019-04-04] MEDS: HYDRALAZINE HCL 100MG TABLET PO SCH ×3 (09:00→18:17)
[2019-04-04] MEDS: AMLODIPINE 5MG TABLET PO SCH ×2 (09:00→20:45)
[2019-04-04 12:55] VITALS: BP 133/58
[2019-04-04] MEDS: NYSTATIN POWDER 15GM TOP SCH ×2 (12:56→18:09)
[2019-04-04 16:16] VITALS: BP 151/64
[2019-04-04] MEDS: SODIUM CHLORIDE 0.9% 1,000 ML IV SCH (18:15)
[2019-04-04 20:00] VITALS: BP 147/51
[2019-04-05] VITALS: BP 145/70
[2019-04-05 04:00] VITALS: BP 113/55
[2019-04-05] MEDS: BLOOD SUGAR DIAGNOSTIC STRIP TEST SCH ×4 (06:36→20:56)
[2019-04-05] MEDS: CLONIDINE 0.2MG TABLET PO SCH ×2 (06:38→12:55)
[2019-04-05] MEDS: SODIUM CHLORIDE 0.9% 1,000 ML IV SCH (06:39)
[2019-04-05 06:43] LABS: CHLORIDE 113 mEq/L (98-107)
[2019-04-05 06:50] LABS: BASOPHILS % 0.7 % (0.0-2.0); EOSINOPHILS % 0.4 % (0.0-5.0); HEMATOCRIT. 21.2 % (36.0-48.0); HEMOGLOBIN. 7.3 g/dL (12.0-16.0); LYMPHOCYTES % 23.4 % (20.0-50.0); MEAN CORPUSCULAR HEMOGLOBIN 31.5 pg (28.0-32.0); MEAN PLATELET VOLUME 7.5 fl (7.4-10.4); MONOCYTES % 7.4 % (2.0-8.0); NEUTROPHILS % 68.1 % (40.0-76.0); PLATELET 187 x1000/uL (130-400); RED BLOOD CELL COUNT 2.31 mill/uL (4.2-5.4); RED CELL DISTRIBUTION WIDTH 15.7 % (11.6-14.6)
[2019-04-05 06:54] LABS: PHOSPHORUS 2.5 mg/dL (2.5-4.9)
[2019-04-05 08:00] VITALS: BP 95/29
[2019-04-05] MEDS ORDERED: SODIUM CHLORIDE 0.9% 500 ML IV ONE (08:45)
[2019-04-05] MEDS: HYDRALAZINE HCL 100MG TABLET PO SCH ×2 (09:00→12:49)
[2019-04-05] MEDS: AMLODIPINE 5MG TABLET PO SCH ×2 (09:00→20:55)
[2019-04-05] MEDS: MINOXIDIL 2.5MG TABLET PO SCH (09:00)
[2019-04-05] MEDS: LISINOPRIL 20MG TABLET PO SCH ×2 (09:00→20:54)
[2019-04-05] MEDS: METOPROLOL TARTRATE 100MG TABLET PO SCH ×2 (09:00→20:55)
[2019-04-05] MEDS: DEXAMETHASONE 4MG/ML 1ML VIAL IV SCH (09:04)
[2019-04-05] MEDS: LEVETIRACETAM 500MG TABLET PO SCH ×2 (09:04→20:54)
[2019-04-05] MEDS: FLUOXETINE HCL 20MG CAPSULE PO SCH (09:04)
[2019-04-05] MEDS: NYSTATIN POWDER 15GM TOP SCH ×3 (09:04→17:47)
[2019-04-05] MEDS: THIAMINE HCL 100MG TABLET PO SCH (09:04)
[2019-04-05] MEDS: INSULIN LISPRO 100 UNITS/ML SUBCUT SCH ×4 (09:11→20:55)
[2019-04-05] MEDS ORDERED: MIDODRINE HCL 5MG TABLET PO SCH (10:00)
[2019-04-05 12:00] VITALS: BP 111/52
[2019-04-05] MEDS ORDERED: METO-411 PO (14:48)
[2019-04-05] MEDS ORDERED: SIMV80TA90 PO (14:48)
[2019-04-05] MEDS ORDERED: AMLO5TAB88 PO (14:48)
[2019-04-05] MEDS ORDERED: LISI-604 PO (14:48)
[2019-04-05] MEDS ORDERED: KEPP500 MT (14:48)
[2019-04-05 16:00] VITALS: BP 121/46
[2019-04-05 20:00] VITALS: BP 148/58
[2019-04-06] VITALS (7 sets, daily range): BP systolic 138–192; BP diastolic 57–80
[2019-04-06] MEDS: BLOOD SUGAR DIAGNOSTIC STRIP TEST SCH ×4 (06:23→20:26)
[2019-04-06] MEDS: IPRATROPIUM/ALBUTEROL 0.5-3(2.5)MG/3ML NEB HHN PRN (06:58)
[2019-04-06 06:59] LABS: BASOPHILS % 0.5 % (0.0-2.0); EOSINOPHILS % 1.1 % (0.0-5.0); HEMOGLOBIN. 8.5 g/dL (12.0-16.0); LYMPHOCYTES % 27.1 % (20.0-50.0); MEAN CORPUSCULAR HEMOGLOBIN 31.2 pg (28.0-32.0); MEAN CORPUSCULAR VOLUME 92.2 fL (81.0-99.0); MEAN PLATELET VOLUME 7.4 fl (7.4-10.4); MONOCYTES % 6.7 % (2.0-8.0); NEUTROPHILS % 64.6 % (40.0-76.0); PLATELET 208 x1000/uL (130-400); RED BLOOD CELL COUNT 2.71 mill/uL (4.2-5.4); RED CELL DISTRIBUTION WIDTH 15.7 % (11.6-14.6)
[2019-04-06] MEDS: INSULIN LISPRO 100 UNITS/ML SUBCUT SCH ×4 (07:50→20:26)
[2019-04-06] MEDS ORDERED: RACEPINEPHRINE 2.25% 0.5ML NEB VIAL HHN PRN (08:30)
[2019-04-06] MEDS: AMLODIPINE 5MG TABLET PO SCH ×2 (09:29→20:26)
[2019-04-06] MEDS: FLUOXETINE HCL 20MG CAPSULE PO SCH (09:29)
[2019-04-06] MEDS: LISINOPRIL 20MG TABLET PO SCH ×2 (09:29→20:26)
[2019-04-06] MEDS: THIAMINE HCL 100MG TABLET PO SCH (09:29)
[2019-04-06] MEDS: LEVETIRACETAM 500MG TABLET PO SCH ×2 (09:30→20:26)
[2019-04-06] MEDS: METOPROLOL TARTRATE 100MG TABLET PO SCH ×2 (09:30→20:26)
[2019-04-06] MEDS ORDERED: FAMOTIDINE 40MG TABLET PO SCH (14:15)
[2019-04-06] MEDS ORDERED: PANTOPRAZOLE SODIUM 40 MG/VIAL IV SCH (17:00)
[2019-04-06] MEDS ORDERED: IPRATROPIUM/ALBUTEROL 0.5-3(2.5)MG/3ML NEB HHN SCH (18:00)
[2019-04-06 19:46] LABS: TOTAL IRON BINDING CAPACITY 286 ug/dL (250-450)
[2019-04-06] MEDS ORDERED: FLUTICASONE PROPIONATE 50MCG/SPRAY BOTTLE BOTHNSTRLS SCH (21:00)
[2019-04-06] MEDS ORDERED: ALPRAZOLAM 0.25 MG TABLET PO SCH (22:00)
== END 2019-04-06 21:40 | disposition home health service (06) | DRG 871 ==
LOC: ER 14:39 → MICUNO 17:25 → EDBEDREQSVC 17:29 → EDBEDREQ 17:29 → EDBEDREQTM 17:29 → ENRESERV 17:56 → 5EST 03-20 13:30 → 6EST 03-30 13:00 → 6WST 03-30 16:57
PROVIDERS: ADMIT Internal Medicine Nephrology; ATTEND Internal Medicine Nephrology
PROC: 02HV33Z Insertion of Infusion Device into Superior Vena Cava, Percutaneous Approach (ICD-10-PCS; principal; 2019-03-16)
PROC: B548ZZA Ultrasonography of Superior Vena Cava, Guidance (ICD-10-PCS; 2019-03-16)
PROC: 30233N1 Transfusion of Nonautologous Red Blood Cells into Peripheral Vein, Percutaneous Approach (ICD-10-PCS; 2019-03-16)
DX: A41.59 Other Gram-negative sepsis (principal); E43 Unspecified severe protein-calorie malnutrition; J96.00 Acute respiratory failure, unspecified whether with hypoxia or hypercapnia; I62.02 Nontraumatic subacute subdural hemorrhage; G82.50 Quadriplegia, unspecified; N39.0 Urinary tract infection, site not specified; E87.1 Hypo-osmolality and hyponatremia; N17.9 Acute kidney failure, unspecified; R47.01 Aphasia; G93.49 Other encephalopathy; E11.649 Type 2 diabetes mellitus with hypoglycemia without coma; I50.9 Heart failure, unspecified; I11.0 Hypertensive heart disease with heart failure; D64.9 Anemia, unspecified; B96.1 Klebsiella pneumoniae [K. pneumoniae] as the cause of diseases classified elsewhere; R13.10 Dysphagia, unspecified; J20.9 Acute bronchitis, unspecified; Z79.899 Other long term (current) drug therapy; Z93.0 Tracheostomy status; Z86.73 Personal history of transient ischemic attack (TIA), and cerebral infarction without residual deficits; Z93.1 Gastrostomy status; Z88.0 Allergy status to penicillin; Z78.1 Physical restraint status
CPT/HCPCS: 36415; 71045; 71046; 74230; 76937; 80048; 80305; 80320; 81003; 82140; 82306; 82728; 82962; 83036; 83540; 83550; 83605; 83735; 83880; 84100; 84134; 84145; 84484; 86850; 86900; 86920; 87077; 87186; 92523; 92610; 92611; 93005; 94640; 97110; 97162; 97164; 97166; 97168; 97530; 97535; 99291; A6261; C1725; C1769; C9113; J0360; J0696; J1100; J1815; J1953; J2060; J2270; J2405; J2543; J3370; J3490; J7030; J7040; J7050; J7120; J7608; J7620; P9016; A4315; G0480

== ENCOUNTER 2019-04-06 21:49 | Inpatient (IN) | payer BC, OTHER ==
[~2019-04-06] VITALS: Ht 162.6 cm; Wt 74.4 kg
[2019-04-06 21:45] VITALS: BP 149/85
[~2019-04-06 21:49] MED LIST: ALLO100T PO; AMLO5TAB88 PO; B12/1TAB PO; FURO80TA3 PO; HYDR-4135 PO; KEPP500 MT; LISI-604 PO; METO-411 PO; SIMV80TA90 PO
[2019-04-07] VITALS (7 sets, daily range): BP systolic 149–219; BP diastolic 75–94
[2019-04-07] MEDS ORDERED: RACEPINEPHRINE 2.25% 0.5ML NEB VIAL HHN PRN (00:15)
[2019-04-07] MEDS ORDERED: IPRATROPIUM/ALBUTEROL 0.5-3(2.5)MG/3ML NEB HHN PRN (00:15)
[2019-04-07] MEDS ORDERED: HYDRALAZINE 20MG/ML VIAL IV PRN (00:15)
[2019-04-07] MEDS ORDERED: DEXTROSE 50% WATER 50ML SYRINGE IV PRN (00:15)
[2019-04-07] MEDS ORDERED: ONDANSETRON HCL 4MG/2ML INJ IV PRN (00:15)
[2019-04-07] MEDS ORDERED: ACETAMINOPHEN 325MG TABLET PO PRN (00:15)
[2019-04-07] MEDS ORDERED: DIPHENHYDRAMINE 50MG/ML VIAL IV PRN (00:15)
[2019-04-07] MEDS: ALPRAZOLAM 0.25 MG TABLET PO SCH ×2 (01:22→06:40)
[2019-04-07] MEDS: IPRATROPIUM/ALBUTEROL 0.5-3(2.5)MG/3ML NEB HHN SCH ×4 (01:30→21:07)
[2019-04-07] MEDS: BLOOD SUGAR DIAGNOSTIC STRIP TEST SCH ×4 (07:07→20:46)
[2019-04-07] MEDS: HYDRALAZINE 10 MG in DEXTROSE 5% WATER 50 ML IV PRN ×2 (07:50→17:41)
[2019-04-07] MEDS ORDERED: FUROSEMIDE 40MG/4ML VIAL IVP SCH (08:00)
[2019-04-07] MEDS: INSULIN LISPRO 100 UNITS/ML SUBCUT SCH ×4 (09:00→21:40)
[2019-04-07] MEDS: FLUTICASONE PROPIONATE 50MCG/SPRAY BOTTLE BOTHNSTRLS SCH ×2 (09:23→20:39)
[2019-04-07] MEDS: NYSTATIN POWDER 15GM TOP SCH ×3 (09:23→17:42)
[2019-04-07] MEDS: LEVETIRACETAM 500MG TABLET PO SCH ×2 (09:24→20:44)
[2019-04-07] MEDS: FLUOXETINE HCL 20MG CAPSULE PO SCH (09:24)
[2019-04-07] MEDS: THIAMINE HCL 100MG TABLET PO SCH (09:24)
[2019-04-07] MEDS: METOPROLOL TARTRATE 100MG TABLET PO SCH ×2 (09:25→20:44)
[2019-04-07] MEDS: AMLODIPINE 5MG TABLET PO SCH ×2 (09:25→20:44)
[2019-04-07] MEDS: LISINOPRIL 20MG TABLET PO SCH ×2 (09:26→20:44)
[2019-04-07] MEDS: PANTOPRAZOLE SODIUM 40 MG/VIAL IV SCH (09:38)
[2019-04-07 12:09] LABS: BASOPHILS % 0.9 % (0.0-2.0); EOSINOPHILS % 1.1 % (0.0-5.0); HEMATOCRIT. 23.4 % (36.0-48.0); LYMPHOCYTES % 10.8 % (20.0-50.0); MEAN CORPUSCULAR HEMOGLOBIN 31.7 pg (28.0-32.0); MEAN CORPUSCULAR VOLUME 92.6 fL (81.0-99.0); MEAN PLATELET VOLUME 7.4 fl (7.4-10.4); MONOCYTES % 4.9 % (2.0-8.0); NEUTROPHILS % 82.3 % (40.0-76.0); PLATELET 197 x1000/uL (130-400); RED BLOOD CELL COUNT 2.52 mill/uL (4.2-5.4); RED CELL DISTRIBUTION WIDTH 15.4 % (11.6-14.6)
[2019-04-07] MEDS: CLONIDINE 0.1MG TABLET PO PRN (12:14)
[2019-04-07 12:26] LABS: CHLORIDE 114 mEq/L (98-107)
[2019-04-07] MEDS: HYDRALAZINE HCL 25MG TABLET PO SCH ×2 (14:44→21:40)
[2019-04-08] MEDS: IPRATROPIUM/ALBUTEROL 0.5-3(2.5)MG/3ML NEB HHN SCH ×3 (02:00→13:39)
[2019-04-08] MEDS: BLOOD SUGAR DIAGNOSTIC STRIP TEST SCH ×2 (06:26→12:12)
[2019-04-08] MEDS: HYDRALAZINE HCL 25MG TABLET PO SCH ×2 (06:26→13:28)
[2019-04-08] MEDS: INSULIN LISPRO 100 UNITS/ML SUBCUT SCH ×2 (06:38→12:12)
[2019-04-08 08:44] VITALS: BP 156/61
[2019-04-08] MEDS: METOPROLOL TARTRATE 100MG TABLET PO SCH (08:45)
[2019-04-08] MEDS: THIAMINE HCL 100MG TABLET PO SCH (08:45)
[2019-04-08] MEDS: FLUOXETINE HCL 20MG CAPSULE PO SCH (08:45)
[2019-04-08] MEDS: LEVETIRACETAM 500MG TABLET PO SCH (08:46)
[2019-04-08] MEDS: FLUTICASONE PROPIONATE 50MCG/SPRAY BOTTLE BOTHNSTRLS SCH (08:46)
[2019-04-08] MEDS: PANTOPRAZOLE SODIUM 40 MG/VIAL IV SCH (08:46)
[2019-04-08] MEDS: AMLODIPINE 5MG TABLET PO SCH (08:46)
[2019-04-08] MEDS: LISINOPRIL 20MG TABLET PO SCH (08:46)
[2019-04-08] MEDS: NYSTATIN POWDER 15GM TOP SCH ×2 (08:46→13:21)
[2019-04-08 10:36] LABS: CHLORIDE 113 mEq/L (98-107)
[2019-04-08 10:50] LABS: BASOPHILS % 0.9 % (0.0-2.0); EOSINOPHILS % 0.9 % (0.0-5.0); LYMPHOCYTES % 15.6 % (20.0-50.0); MEAN CORPUSCULAR HEMOGLOBIN 31.3 pg (28.0-32.0); MEAN CORPUSCULAR VOLUME 92.2 fL (81.0-99.0); MEAN PLATELET VOLUME 7.5 fl (7.4-10.4); MONOCYTES % 6.4 % (2.0-8.0); NEUTROPHILS % 76.2 % (40.0-76.0); PLATELET 174 x1000/uL (130-400); RED BLOOD CELL COUNT 2.15 mill/uL (4.2-5.4); RED CELL DISTRIBUTION WIDTH 15.4 % (11.6-14.6)
[2019-04-08 10:54] LABS: HEMATOCRIT. 19.8 % (36.0-48.0); HEMOGLOBIN. 6.8 g/dL (12.0-16.0)
[2019-04-08] MEDS: CLONIDINE 0.1MG TABLET PO PRN (15:57)
[2019-04-08] MEDS ORDERED: ALBUTEROL (0.083%) 2.5MG/3ML NEB HHN PRN (16:45)
[2019-04-08 16:53] LABS: BG BASE EXCESS -1.9 mmol/L (-2.0-2.0); BG BILEVEL POS AIRWAY PRESSURE 18/5; BG CARBOXYHEMOGLOBIN 0.4 % (0.5-1.5); BG DEOXYHEMOGLOBIN 0.9 % (0.0-5.0); BG FRACTION INSPIRED OXYGEN 50; BG HCO3 ACT 22.3 mmol/L (22.0-26.0); BG METHEMOGLOBIN 0.5 % (0.0-1.5); BG OXYGEN SATURATION 99.1 % (92.0-98.5); BG OXYHEMOGLOBIN 98.2 % (94.0-97.0); BG PCO2 34.7 mmHg (35.0-45.0); BG PH 7.425 (7.350-7.450); BG PO2 200.5 mmHg (75.0-100.0); BG SAMPLE SITE RIGHT BRACHIAL; BG TOTAL HEMOGLOBIN 7.6 g/dL (12.0-18.0); BG VENT MODE MASK - AEROSOL
[2019-04-08] MEDS ORDERED: METHYLPREDNISOLONE SOD SUCC 125 MG/2 ML VIAL IV NR (17:00)
[2019-04-08] MEDS ORDERED: IPRA3AMP9 HHN (18:45)
[2019-04-08] MEDS ORDERED: FLUO20CA33 PO (18:45)
[2019-04-08] MEDS ORDERED: METH125V12 IJ (18:45)
[2019-04-08] MEDS ORDERED: FLUT9.9S16 BOTHNSTRLS (18:45)
[2019-04-08] MEDS ORDERED: PROT40 PO (18:45)
[2019-04-08] MEDS ORDERED: HYDR-4135 PO (18:45)
[2019-04-08] MEDS ORDERED: THIA100T88 PO (18:45)
[2019-04-08] MEDS ORDERED: ALBUTEROL (0.083%) 2.5MG/3ML NEB HHN SCH (20:00)
[2019-04-09] MEDS ORDERED: METHYLPREDNISOLONE SOD SUCC 40 MG/ML VIAL IV SCH (01:00)
== END 2019-04-08 16:43 | disposition short-term general hospital (02) | DRG 64 ==
PROVIDERS: ADMIT Physical Medicine & Rehabilitation Spinal Cord Injury Medicine; ATTEND Family Medicine Adult Medicine
PROC: 5A09357 Assistance with Respiratory Ventilation, Less than 24 Consecutive Hours, Continuous Positive Airway Pressure (ICD-10-PCS; principal; 2019-04-08)
DX: I62.01 Nontraumatic acute subdural hemorrhage (principal); G82.50 Quadriplegia, unspecified; E43 Unspecified severe protein-calorie malnutrition; J96.00 Acute respiratory failure, unspecified whether with hypoxia or hypercapnia; A41.9 Sepsis, unspecified organism; G93.40 Encephalopathy, unspecified; I42.9 Cardiomyopathy, unspecified; N39.0 Urinary tract infection, site not specified; E87.1 Hypo-osmolality and hyponatremia; Z99.11 Dependence on respirator [ventilator] status; I62.03 Nontraumatic chronic subdural hemorrhage; R13.10 Dysphagia, unspecified; R47.01 Aphasia; D64.9 Anemia, unspecified; I11.0 Hypertensive heart disease with heart failure; I50.9 Heart failure, unspecified; E11.649 Type 2 diabetes mellitus with hypoglycemia without coma; R47.1 Dysarthria and anarthria; M10.9 Gout, unspecified; J44.9 Chronic obstructive pulmonary disease, unspecified; R62.7 Adult failure to thrive; B96.1 Klebsiella pneumoniae [K. pneumoniae] as the cause of diseases classified elsewhere; Z68.28 Body mass index [BMI] 28.0-28.9, adult; Z93.0 Tracheostomy status; Z79.899 Other long term (current) drug therapy; Z93.1 Gastrostomy status
CPT/HCPCS: 36415; 36600; 80048; 82375; 82805; 82962; 84134; 86850; 86900; 86920; 92523; 92610; 93970; 93971; 97163; 97167; 97530; 97535; C9113; J0360; J1815; J1940; J7060; J7620

== ENCOUNTER 2019-04-08 17:26 | Inpatient (IN) | payer BC, OTHER ==
[~2019-04-08] VITALS: Ht 165.1 cm; Wt 91.7 kg
[~2019-04-08 17:26] MED LIST changes: -HYDR-4135 PO
[2019-04-08] MEDS ORDERED: FUROSEMIDE 40MG/4ML VIAL IVP NR ×2 (17:45)
[2019-04-08 17:46] VITALS: BP 185/75
[2019-04-08 18:00] VITALS: BP 176/77
[2019-04-08] MEDS ORDERED: METH125V12 IJ (18:45)
[2019-04-08] MEDS ORDERED: PROT40 PO (18:45)
[2019-04-08] MEDS ORDERED: THIA100T88 PO (18:45)
[2019-04-08] MEDS ORDERED: FLUT9.9S16 BOTHNSTRLS (18:45)
[2019-04-08] MEDS ORDERED: ACETAMINOPHEN 325MG TABLET PO PRN (18:45)
[2019-04-08] MEDS ORDERED: HYDR-4135 PO (18:45)
[2019-04-08] MEDS ORDERED: FLUO20CA33 PO (18:45)
[2019-04-08] MEDS ORDERED: ONDANSETRON HCL 4MG/2ML INJ IV PRN (18:45)
[2019-04-08] MEDS ORDERED: DEXTROSE 50% WATER 50ML SYRINGE IV PRN (18:45)
[2019-04-08] MEDS ORDERED: IPRA3AMP9 HHN (18:45)
[2019-04-08 20:00] VITALS: BP 166/76
[2019-04-08] MEDS: IPRATROPIUM/ALBUTEROL 0.5-3(2.5)MG/3ML NEB HHN SCH (20:00)
[2019-04-08] MEDS: METHYLPREDNISOLONE SOD SUCC 40 MG/ML VIAL IV SCH (20:10)
[2019-04-08] MEDS: INSULIN LISPRO 100 UNITS/ML SUBCUT SCH (20:57)
[2019-04-08] MEDS: LEVETIRACETAM 500MG TABLET PO SCH (21:05)
[2019-04-08] MEDS: BLOOD SUGAR DIAGNOSTIC STRIP TEST SCH (21:05)
[2019-04-08] MEDS: LISINOPRIL 20MG TABLET PO SCH (21:06)
[2019-04-08] MEDS: AMLODIPINE 5MG TABLET PO SCH (21:06)
[2019-04-08] MEDS: METOPROLOL TARTRATE 100MG TABLET PO SCH (21:07)
[2019-04-08] MEDS: FLUTICASONE PROPIONATE 50MCG/SPRAY BOTTLE BOTHNSTRLS SCH (21:37)
[2019-04-08 22:00] VITALS: BP_SYST 179; BP_SYST 182; BP_DIAS 71; BP_DIAS 80
[2019-04-08 22:15] VITALS: BP 176/71
[2019-04-08 23:15] VITALS: BP 170/81
[2019-04-08] MEDS: HYDRALAZINE HCL 25MG TABLET PO SCH (23:50)
[2019-04-09] VITALS (21 sets, daily range): BP systolic 146–187; BP diastolic 64–93
[2019-04-09] MEDS: HYDRALAZINE 20MG/ML VIAL IV PRN (00:55)
[2019-04-09] MEDS: IPRATROPIUM/ALBUTEROL 0.5-3(2.5)MG/3ML NEB HHN SCH ×7 (02:08→20:53)
[2019-04-09] MEDS: METHYLPREDNISOLONE SOD SUCC 40 MG/ML VIAL IV SCH ×3 (05:13→20:26)
[2019-04-09] MEDS: HYDRALAZINE HCL 25MG TABLET PO SCH ×3 (06:22→23:18)
[2019-04-09] MEDS: BLOOD SUGAR DIAGNOSTIC STRIP TEST SCH ×4 (06:44→20:27)
[2019-04-09 06:54] LABS: CHLORIDE 109 mEq/L (98-107)
[2019-04-09 07:45] LABS: HEMATOCRIT 30.8 % (36.0-48.0); HEMOGLOBIN 10.5 g/dL (12.0-16.0); MEAN CORPUSCULAR HEMOGLOBIN 30.8 pg (28.0-32.0); MEAN CORPUSCULAR VOLUME 90.6 fL (81.0-99.0); PLATELET 190 x1000/uL (130-400); RED CELL DISTRIBUTION WIDTH 15.4 % (11.6-14.6)
[2019-04-09] MEDS: METOPROLOL TARTRATE 100MG TABLET PO SCH ×2 (09:05→20:26)
[2019-04-09] MEDS: AMLODIPINE 5MG TABLET PO SCH ×2 (09:05→20:27)
[2019-04-09] MEDS: PANTOPRAZOLE SODIUM 40 MG/VIAL IV SCH (09:05)
[2019-04-09] MEDS: FLUOXETINE HCL 20MG CAPSULE PO SCH (09:06)
[2019-04-09] MEDS: LISINOPRIL 20MG TABLET PO SCH ×2 (09:06→20:26)
[2019-04-09] MEDS: LEVETIRACETAM 500MG TABLET PO SCH ×2 (09:06→20:26)
[2019-04-09] MEDS: THIAMINE HCL 100MG TABLET PO SCH (09:06)
[2019-04-09] MEDS: INSULIN LISPRO 100 UNITS/ML SUBCUT SCH ×4 (09:22→20:46)
[2019-04-09] MEDS: FLUTICASONE PROPIONATE 50MCG/SPRAY BOTTLE BOTHNSTRLS SCH ×2 (09:33→20:47)
[2019-04-09 10:14] LABS: BG BASE EXCESS -4.3 mmol/L (-2.0-2.0); BG BILEVEL POS AIRWAY PRESSURE 15/5; BG DEOXYHEMOGLOBIN 1.3 % (0.0-5.0); BG FRACTION INSPIRED OXYGEN 35; BG HCO3 ACT 19.9 mmol/L (22.0-26.0); BG METHEMOGLOBIN 0.6 % (0.0-1.5); BG OXYGEN SATURATION 98.7 % (92.0-98.5); BG OXYHEMOGLOBIN 98.1 % (94.0-97.0); BG PCO2 33.5 mmHg (35.0-45.0); BG PH 7.391 (7.350-7.450); BG PO2 151.2 mmHg (75.0-100.0); BG SAMPLE SITE RIGHT RADIAL; BG TOTAL HEMOGLOBIN 11.8 g/dL (12.0-18.0); BG VENT MODE MASK - BIPAP; BG VENT RATE 14 set
[2019-04-10] VITALS (12 sets, daily range): BP systolic 157–188; BP diastolic 67–86
[2019-04-10] MEDS: IPRATROPIUM/ALBUTEROL 0.5-3(2.5)MG/3ML NEB HHN SCH ×6 (02:27→21:43)
[2019-04-10] MEDS: HYDRALAZINE 20MG/ML VIAL IV PRN ×3 (02:31→22:16)
[2019-04-10] MEDS: METHYLPREDNISOLONE SOD SUCC 40 MG/ML VIAL IV SCH (04:38)
[2019-04-10] MEDS: HYDRALAZINE HCL 25MG TABLET PO SCH ×3 (07:26→22:15)
[2019-04-10] MEDS: BLOOD SUGAR DIAGNOSTIC STRIP TEST SCH ×4 (07:26→21:57)
[2019-04-10] MEDS: INSULIN LISPRO 100 UNITS/ML SUBCUT SCH ×4 (08:27→21:57)
[2019-04-10] MEDS: FLUOXETINE HCL 20MG CAPSULE PO SCH (08:28)
[2019-04-10] MEDS: PANTOPRAZOLE SODIUM 40 MG/VIAL IV SCH (08:28)
[2019-04-10] MEDS: AMLODIPINE 5MG TABLET PO SCH ×2 (08:29→20:55)
[2019-04-10] MEDS: METOPROLOL TARTRATE 100MG TABLET PO SCH ×2 (08:29→20:56)
[2019-04-10] MEDS: LEVETIRACETAM 500MG TABLET PO SCH ×2 (08:29→20:56)
[2019-04-10] MEDS: LISINOPRIL 20MG TABLET PO SCH ×2 (08:29→20:56)
[2019-04-10] MEDS: THIAMINE HCL 100MG TABLET PO SCH (08:29)
[2019-04-10] MEDS: FLUTICASONE PROPIONATE 50MCG/SPRAY BOTTLE BOTHNSTRLS SCH ×2 (08:42→22:14)
[2019-04-10] MEDS ORDERED: DEXTROSE 50% WATER 50ML SYRINGE IV PRN (11:00)
[2019-04-10] MEDS: PREDNISONE 20MG TABLET PO SCH (16:12)
[2019-04-10 16:28] LABS: CHLORIDE 107 mEq/L (98-107)
[2019-04-10] MEDS ORDERED: INSULIN GLARGINE UD 100 UNITS/ML SYR SUBCUT SCH (22:00)
[2019-04-11] VITALS (11 sets, daily range): BP systolic 164–194; BP diastolic 75–94
[2019-04-11] MEDS: HYDRALAZINE 20MG/ML VIAL IV PRN ×2 (04:12→13:26)
[2019-04-11] MEDS: IPRATROPIUM/ALBUTEROL 0.5-3(2.5)MG/3ML NEB HHN SCH ×5 (05:05→20:09)
[2019-04-11] MEDS: HYDRALAZINE HCL 25MG TABLET PO SCH (06:25)
[2019-04-11] MEDS: BLOOD SUGAR DIAGNOSTIC STRIP TEST SCH ×4 (06:26→21:00)
[2019-04-11 07:15] LABS: BASOPHILS % 0.4 % (0.0-2.0); HEMATOCRIT. 31.4 % (36.0-48.0); HEMOGLOBIN. 10.6 g/dL (12.0-16.0); LYMPHOCYTES % 7.4 % (20.0-50.0); MEAN CORPUSCULAR HEMOGLOBIN 30.3 pg (28.0-32.0); MEAN CORPUSCULAR VOLUME 90.2 fL (81.0-99.0); MEAN PLATELET VOLUME 7.6 fl (7.4-10.4); MONOCYTES % 3.5 % (2.0-8.0); NEUTROPHILS % 88.7 % (40.0-76.0); PLATELET 214 x1000/uL (130-400); RED BLOOD CELL COUNT 3.49 mill/uL (4.2-5.4); RED CELL DISTRIBUTION WIDTH 15.2 % (11.6-14.6)
[2019-04-11 07:18] LABS: CHLORIDE 108 mEq/L (98-107)
[2019-04-11] MEDS: METOPROLOL TARTRATE 100MG TABLET PO SCH ×2 (09:19→22:30)
[2019-04-11] MEDS: FLUOXETINE HCL 20MG CAPSULE PO SCH (09:19)
[2019-04-11] MEDS: INSULIN LISPRO 100 UNITS/ML SUBCUT SCH ×4 (09:19→23:25)
[2019-04-11] MEDS: PANTOPRAZOLE SODIUM 40 MG/VIAL IV SCH (09:19)
[2019-04-11] MEDS: PREDNISONE 20MG TABLET PO SCH (09:19)
[2019-04-11] MEDS: LEVETIRACETAM 500MG TABLET PO SCH ×2 (09:20→22:26)
[2019-04-11] MEDS: LISINOPRIL 20MG TABLET PO SCH ×2 (09:20→22:30)
[2019-04-11] MEDS: AMLODIPINE 5MG TABLET PO SCH ×2 (09:20→22:26)
[2019-04-11] MEDS: THIAMINE HCL 100MG TABLET PO SCH (09:20)
[2019-04-11] MEDS: FLUTICASONE PROPIONATE 50MCG/SPRAY BOTTLE BOTHNSTRLS SCH (09:21)
[2019-04-11] MEDS: HYDRALAZINE HCL 50MG TABLET PO SCH ×3 (10:54→23:18)
[2019-04-11] MEDS ORDERED: HYDRALAZINE HCL 50MG TABLET PO SCH (14:00)
[2019-04-11] MEDS: CLONIDINE 0.2MG TABLET PO SCH (16:28)
[2019-04-11] MEDS: INSULIN GLARGINE UD 100 UNITS/ML SYR SUBCUT SCH (23:26)
[2019-04-12] VITALS (9 sets, daily range): BP systolic 154–175; BP diastolic 64–89
[2019-04-12] MEDS: IPRATROPIUM/ALBUTEROL 0.5-3(2.5)MG/3ML NEB HHN SCH ×6 (00:12→20:10)
[2019-04-12] MEDS: CLONIDINE 0.2MG TABLET PO SCH ×4 (02:11→22:51)
[2019-04-12] MEDS: HYDRALAZINE 20MG/ML VIAL IV PRN (04:01)
[2019-04-12] MEDS: BLOOD SUGAR DIAGNOSTIC STRIP TEST SCH ×4 (06:50→21:00)
[2019-04-12] MEDS: HYDRALAZINE HCL 50MG TABLET PO SCH (06:53)
[2019-04-12] MEDS: INSULIN LISPRO 100 UNITS/ML SUBCUT SCH ×4 (07:20→22:14)
[2019-04-12 07:21] LABS: CHLORIDE 109 mEq/L (98-107)
[2019-04-12 07:32] LABS: BASOPHILS % 0.1 % (0.0-2.0); HEMATOCRIT. 28.8 % (36.0-48.0); HEMOGLOBIN. 9.8 g/dL (12.0-16.0); LYMPHOCYTES % 12.9 % (20.0-50.0); MEAN CORPUSCULAR HEMOGLOBIN 30.9 pg (28.0-32.0); MEAN CORPUSCULAR VOLUME 90.8 fL (81.0-99.0); MEAN PLATELET VOLUME 7.8 fl (7.4-10.4); MONOCYTES % 8.1 % (2.0-8.0); NEUTROPHILS % 78.9 % (40.0-76.0); PLATELET 192 x1000/uL (130-400); RED BLOOD CELL COUNT 3.18 mill/uL (4.2-5.4); RED CELL DISTRIBUTION WIDTH 15.1 % (11.6-14.6)
[2019-04-12] MEDS: PREDNISONE 20MG TABLET PO SCH (09:01)
[2019-04-12] MEDS: FLUOXETINE HCL 20MG CAPSULE PO SCH (09:03)
[2019-04-12] MEDS: LEVETIRACETAM 500MG TABLET PO SCH ×2 (09:03→21:50)
[2019-04-12] MEDS: THIAMINE HCL 100MG TABLET PO SCH (09:04)
[2019-04-12] MEDS: METOPROLOL TARTRATE 100MG TABLET PO SCH ×3 (09:04→21:51)
[2019-04-12] MEDS: FAMOTIDINE 20MG TABLET PO SCH ×2 (09:05→21:50)
[2019-04-12] MEDS: AMLODIPINE 5MG TABLET PO SCH ×2 (09:05→21:51)
[2019-04-12] MEDS: LISINOPRIL 20MG TABLET PO SCH ×2 (09:30→21:50)
[2019-04-12] MEDS: HYDRALAZINE HCL 100MG TABLET PO SCH ×2 (15:12→22:50)
[2019-04-12] MEDS: INSULIN GLARGINE UD 100 UNITS/ML SYR SUBCUT SCH (22:14)
[2019-04-13] VITALS (11 sets, daily range): BP systolic 132–175; BP diastolic 57–76
[2019-04-13] MEDS: IPRATROPIUM/ALBUTEROL 0.5-3(2.5)MG/3ML NEB HHN SCH ×5 (00:09→14:45)
[2019-04-13] MEDS: HYDRALAZINE 20MG/ML VIAL IV PRN (04:33)
[2019-04-13] MEDS: CLONIDINE 0.2MG TABLET PO SCH ×2 (06:34→16:17)
[2019-04-13] MEDS: BLOOD SUGAR DIAGNOSTIC STRIP TEST SCH ×3 (06:51→16:50)
[2019-04-13] MEDS: HYDRALAZINE HCL 100MG TABLET PO SCH ×2 (08:00→16:17)
[2019-04-13] MEDS: FAMOTIDINE 20MG TABLET PO SCH (08:19)
[2019-04-13] MEDS: FLUOXETINE HCL 20MG CAPSULE PO SCH (08:19)
[2019-04-13] MEDS: INSULIN LISPRO 100 UNITS/ML SUBCUT SCH ×3 (08:19→17:58)
[2019-04-13] MEDS: LEVETIRACETAM 500MG TABLET PO SCH (08:19)
[2019-04-13] MEDS: THIAMINE HCL 100MG TABLET PO SCH (08:20)
[2019-04-13] MEDS: PREDNISONE 20MG TABLET PO SCH (08:20)
[2019-04-13] MEDS: LISINOPRIL 20MG TABLET PO SCH (09:59)
[2019-04-13] MEDS: AMLODIPINE 5MG TABLET PO SCH ×2 (10:00→18:47)
[2019-04-13] MEDS ORDERED: AMLO5TAB88 PO (15:23)
[2019-04-13] MEDS ORDERED: HYDR100T26 PO (15:23)
[2019-04-13] MEDS ORDERED: CLON0.2T12 PO (15:23)
[2019-04-13] MEDS ORDERED: P20 PO (15:23)
[2019-04-14 15:06] LABS: ANTI-NUCLEAR ANTIBODIES DIRECT Positive (Negative)
[2019-04-15 13:06] LABS: DRVVT LA 33.5 sec (0.0-47.0); PTT-LA 27.5 sec (0.0-51.9)
[2019-04-15 14:09] LABS: LUPUS ANTICOAG INTERPRETATION Comment: (.)
[2019-04-16 13:06] LABS: ANGIOTENSION CONVERTING ENZYME 5 U/L (14-82)
[2019-04-16 14:08] LABS: ANTI-MYELOPEROXIDASE AB < 9.0 U/mL (0.0-9.0); ANTI-PROTEINASE 3 ABS < 3.5 U/mL (0.0-3.5); ATYPICAL P-ANCA <1:20 titer (Neg:<1:20); CYTOPLASMIC C-ANCA <1:20 titer (Neg:<1:20); PERINUCLEAR P-ANCA <1:20 titer (Neg:<1:20)
== END 2019-04-13 19:05 | disposition home or self-care (01) | DRG 871 ==
LOC: 3WST 17:26
PROVIDERS: ADMIT Family Medicine Adult Medicine; ATTEND Family Medicine Adult Medicine
PROC: 5A09357 Assistance with Respiratory Ventilation, Less than 24 Consecutive Hours, Continuous Positive Airway Pressure (ICD-10-PCS; 2019-04-08)
PROC: 30233N1 Transfusion of Nonautologous Red Blood Cells into Peripheral Vein, Percutaneous Approach (ICD-10-PCS; principal; 2019-04-09)
PROC: 5A09357 Assistance with Respiratory Ventilation, Less than 24 Consecutive Hours, Continuous Positive Airway Pressure (ICD-10-PCS; 2019-04-10)
DX: A41.9 Sepsis, unspecified organism (principal); I62.01 Nontraumatic acute subdural hemorrhage; I62.03 Nontraumatic chronic subdural hemorrhage; G82.50 Quadriplegia, unspecified; J96.01 Acute respiratory failure with hypoxia; N39.0 Urinary tract infection, site not specified; G93.40 Encephalopathy, unspecified; E46 Unspecified protein-calorie malnutrition; G96.0 Cerebrospinal fluid leak; J98.11 Atelectasis; R47.01 Aphasia; E11.9 Type 2 diabetes mellitus without complications; B96.1 Klebsiella pneumoniae [K. pneumoniae] as the cause of diseases classified elsewhere; D64.9 Anemia, unspecified; E78.5 Hyperlipidemia, unspecified; F03.90 Unspecified dementia, unspecified severity, without behavioral disturbance, psychotic disturbance, mood disturbance, and anxiety; F41.9 Anxiety disorder, unspecified; I11.0 Hypertensive heart disease with heart failure; L89.159 Pressure ulcer of sacral region, unspecified stage; L89.620 Pressure ulcer of left heel, unstageable; L89.610 Pressure ulcer of right heel, unstageable; L89.890 Pressure ulcer of other site, unstageable; I49.3 Ventricular premature depolarization; I50.9 Heart failure, unspecified; K21.9 Gastro-esophageal reflux disease without esophagitis; L30.9 Dermatitis, unspecified; R13.10 Dysphagia, unspecified; R47.1 Dysarthria and anarthria; Z74.01 Bed confinement status; Z79.4 Long term (current) use of insulin; Z68.33 Body mass index [BMI] 33.0-33.9, adult; Z79.899 Other long term (current) drug therapy; Z86.73 Personal history of transient ischemic attack (TIA), and cerebral infarction without residual deficits; Z93.0 Tracheostomy status; Z93.1 Gastrostomy status
CPT/HCPCS: 36415; 36600; 71045; 71250; 80048; 80076; 82040; 82164; 82270; 82375; 82805; 82962; 83036; 83520; 83735; 84134; 84550; 85025; 85027; 85613; 85651; 85732; 86038; 86256; 86431; 86900; 86920; 92610; 93005; 93306; 94640; 97166; C9113; J0360; J1815; J1940; J2920; J7512; J7620; P9016